=== PATIENT | male | born 1940 | race Caucasian/White ===

== ENCOUNTER → 2022-03-22 10:32 | Outpatient (BNVA) | payer MEDICARE, BC, SELFPAY | PROVIDERS: Visit Provider Family Medicine | DX: I48.91 Unspecified atrial fibrillation (principal); R35.1 Nocturia; R35.0 Frequency of micturition; I10 Essential (primary) hypertension; R31.9 Hematuria, unspecified | CPT/HCPCS: 80053; 80061; 81000; 84153; 84443; 85025; 87086 ==

== ENCOUNTER → 2022-05-26 09:33 | Outpatient (BNVA) | payer MEDICARE, BC, SELFPAY | PROVIDERS: PCP Family Medicine; Visit Provider Urology | DX: N20.1 Calculus of ureter (principal); N40.1 Benign prostatic hyperplasia with lower urinary tract symptoms; R31.21 Asymptomatic microscopic hematuria; R39.9 Unspecified symptoms and signs involving the genitourinary system; R35.0 Frequency of micturition; R31.9 Hematuria, unspecified; R35.1 Nocturia | CPT/HCPCS: 51741; 51798; 52000; 81003; 87086; 88112; 99203 ==

== ENCOUNTER 2022-06-28 12:35 | Outpatient (CLI) | payer MEDICARE, BC, SELFPAY ==
--- NOTE | 2022-06-28 12:30 | CT_ITS ---
WS: [id number] CT ABDOMEN AND PELVIS WITH AND WITHOUT CONTRAST HISTORY: Hematuria TECHNIQUE: Unenhanced 5 mm axial imaging first performed through the abdomen. Post contrast imaging t hrough the abdomen and pelvis. Oral contrast has been provided. Sagittal and coronal reformats are s ubmitted. All CT scans at [facility] use at least one of these dose optimization techniques: automated exposure control; mA and/or kV adjustment per patient size (includes targeted exams where d ose is matched to clinical indication); or iterative reconstruction. CONTRAST: Omnipaque 300; 95 mL IV. DLP: 2402.81 mGy.cm COMPARISON: None available. Benign granuloma RIGHT lung base. No pneumonia. Mild enlargement the heart. Small hiatal hernia. RIGHT kidney: 9.9 cm in length. Nonobstructing 6.4 mm calcification lower pole. No solid mass or vijaya l obstruction. Only partial opacification of the RIGHT ureter. No filling defect. LEFT kidney: 10.1 cm in length. Nonobstructing calcification lower pole measures 6.6 mm. No renal obs truction. There are several cortical cysts with no solid mass. The largest cyst measures 1.5 cm in th e lower pole. Only partial opacification of the LEFT ureter. No filling defect or obstruction. Normal liver and spleen. Normal gallbladder with mild contraction. Normal pancreas and adrenal glands . Mild atherosclerosis aorta. Tortuosity with no aneurysm. Small umbilical hernia contains fat only. No GI tract obstruction. Distal colon diverticulosis withou t acute diverticulitis. Prostate gland is markedly enlarged and lobulated encroaching into the urinary bladder. Central prost ate calcifications. Gland measures 6.2 x 5.7 cm and extends over a length of 6.7 cm encroaching into the bladder. The ureters are not obstructed at this time. No osteoblastic or osteolytic bone disease. CT/CT abdomen pelvis wo/w [id number] IMPRESSION: 1. No solid renal mass or obstruction. 2. Bilateral nonobstructing calcifications in each kidney. 3. LEFT renal cysts. 4. Markedly enlarged lobulated prostate gland measures 6.2 x 5.7 x 6.7 cm encr oaching into the urinary bladder. 5. Tortuous colon with diverticulosis. No evidence for acute diverticulitis.
[2022-06-28 13:03] LABS: Blood Urea Nitrogen 13 mg/dL (8-23)
[2022-06-28] MEDS: iohexol 350 mg/mL 500 mL Btl (per mL) IV (13:15)
== END 2022-06-28 12:36 | disposition home or self-care (01) ==
LOC: RAD 12:36
PROVIDERS: PCP Family Medicine; Visit Provider Urology
DX: N40.1 Benign prostatic hyperplasia with lower urinary tract symptoms (principal); R31.9 Hematuria, unspecified; R35.1 Nocturia; R39.9 Unspecified symptoms and signs involving the genitourinary system; R35.0 Frequency of micturition
CPT/HCPCS: 51741; 51798; 74178; 81003; 82565; 84520; 99213; Q9967

== ENCOUNTER → 2022-11-22 13:27 | Outpatient (BNVA) | payer MEDICARE, BC, SELFPAY | PROVIDERS: PCP Family Medicine; Visit Provider Dermatology | DX: L82.1 Other seborrheic keratosis (principal); L57.8 Other skin changes due to chronic exposure to nonionizing radiation; L85.3 Xerosis cutis; L57.0 Actinic keratosis; L81.4 Other melanin hyperpigmentation; Z85.828 Personal history of other malignant neoplasm of skin | CPT/HCPCS: 17000; 17003; 99214 ==

== ENCOUNTER 2023-02-15 14:56 | Inpatient (IN) | payer MEDICARE, BC, SELFPAY ==
[2023-02-15 15:02] VITALS: BP 180/95; PULSE 119; RESP 16; TEMP 36.5; O2SAT 97; BMI 28.1
[2023-02-15 16:10] LABS: Hematocrit 47.9 % (37-53); Mean Corpuscular HGB Conc 33.2 g/dL (30-55); Mean Corpuscular Hemoglobin 31.2 pg (27-33); Mean Corpuscular Volume 93.9 fl (82-101); Mean Platelet Volume 10.7 fL (7.4-10.4); Platelet Count 231 10^3/cmm (157-399); White Blood Count 15.07 10^3/uL (3.29-11.43)
[2023-02-15 16:13] LABS: Slide Review Slide Review Perform
[2023-02-15 16:25] LABS: Absolute Segmented Neutrophil 14.6 10/cmm (1.6-7.1); Alanine Aminotransferase 23 U/L (0-41); Albumin Level 4.7 g/dL (3.5-5.2); Alkaline Phosphatase 95 U/L (40-130); Anion Gap 16.9 (5-19); Aspartate Amino Transferase 18 U/L (0-40); Band Neutrophils Absolute 0.2 10^3/cmm (0.0-1.2); Blood Urea Nitrogen 12 mg/dL (8-23); Calcium 9.8 mg/dL (8.5-10.5); Carbon Dioxide 27 mmol/L (22-29); Chloride 99 mmol/L (98-107); Eosinophils 0 %; Globulin 3.2 g/dL (1.3-4.6); Glucose 159 mg/dL (65-115); Lipase 25 U/L (13-60); Lymphocytes 1 %; Lymphocytes Absolute 0.2 10^3/cmm (1.2-3.4); Osmolality Calculated 289 mOsm/kg (285-295); Potassium 4.9 mmol/L (3.5-5.1); Segmented Neutrophils 97 %; Sodium 138 mmol/L (136-145); Total Bilirubin 0.8 mg/dL (0.15-1.2); Total Cells Counted 100 (0-100); Total Protein 7.9 g/dL (6.6-8.7)
[2023-02-15 16:26] LABS: Absolute Neutrophil 14.8 10^3/cmm (1.4-6.5); Platelet Estimate Normal (Normal)
[2023-02-15 16:30] LABS: Add Urine Microscopic? YES; Bilirubin Urine Neg (Negative); Blood Urine Neg (Negative); Glucose Urine UA Norm (Normal); Ketones Urine 2+ (Negative); Leukocyte Esterase Urine Negative (Negative); Nitrate Urine Negative (Negative); Protein Urine Trace (Negative); Specific Gravity, Urine 1.015 (1.005-1.030); Urine Appearance Clear (CLEAR); Urine Color Yellow (Yellow); Urobilinogen Urine Norm (Negative); pH Urine 7 (5-7)
[2023-02-15 16:31] LABS: Add Urine Culture? No; Amorphous Sediment Urine 3+ /hpf; RBC Urine 0-4 /hpf (0-2); Squamous Epithelial Cell Urine 0-4 /hpf (0-5); WBC Urine 0-4 /hpf (0-5)
--- NOTE | 2023-02-15 16:41 | ED_ITS ---
HPI - Abdominal Pain General: Chief Complaint: Abdominal Pain Stated Complaint: lower abd pain, the walk in [facility] sent him Time Seen by Provider: 02/15/23 16:36 History of Present Illness: Patient presents to the ER with complaints of intermittent wavelike lower abdominal pain. This started this morning. Patient does have mild nausea with this. Patient is never had this pain before. The pain does not radiate. The pain is more of an ache and not sharp and stabbing in nature. 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 Surgical History History of facial surgery Social History Smoking and tobacco status: never smoked Alcohol intake: current Alcohol intake frequency: holidays/special occasions only Substance/Drug Use: never Adopted: Yes Caregiver/support person: No Lives independently: No Household members: spouse Housing: House Marital status: Current occupational status: retired Physical Exam Const: COMMON NORMALS: no acute distress, average body habitus, patient oriented x3, no limitations, healthy appearing, alert and well nourished HENMT: COMMON NORMALS: normocephalic, atraumatic, hearing grossly normal bilaterally, external ears normal, Normal external nose present and moist oral mucous membranes HEAD & SCALP: normocephalic and atraumatic NOSE: Normal external nose present EXTERNAL EAR: Yes external ears normal Neck/C-Spine: COMMON NORMALS: full ROM, no lymphadenopathy, supple, no meningeal signs, no JVD and Thyroid normal THYROID: Thyroid normal Chest: COMMONS NORMALS: normal inspection of the chest and normal palpation of entire chest wall Resp: COMMON NORMALS: normal respiratory effort, No retractions, No use of accessory muscles and clear to auscultation bilaterally AUSCULTATION: clear to auscultation bilaterally Cardio: COMMON NORMALS: no JVD, regular rate, regular rhythm, S1 normal heart sound present, S2 normal heart sound present, No gallops present (Cardio), No clicks present (Cardio), No murmurs present (Cardio) and No rub (Cardio) RATE: regular rate RHYTHM: regular rhythm HEART SOUNDS: S1 normal heart sound present and S2 normal heart sound present GI: COMMON NORMALS: Soft to palpation and No hepatosplenomegaly present PALPATION: Yes Soft to palpation and Yes No hepatosplenomegaly present OTHER: Prominent umbilical hernia noted very tender to palpate. : COMMON NORMALS: Yes no CVA tenderness BLADDER/KIDNEY EXAM: Yes no CVA tenderness Back/Pelvis: COMMON NORMALS: no CVA tenderness Neuro: COMMON NORMALS: patient oriented x3 SENSORIUM/ORIENTATION: Yes alert MENINGEAL SIGNS: Yes no meningeal signs Course Vital Signs: Vital signs: Vital Signs Temperature 97.7 F 02/15/23 15:02 Pulse Rate 100 02/15/23 19:33 Respiratory Rate 16 02/15/23 19:33 Blood Pressure 176/123 02/15/23 19:33 Pulse Oximetry 95 02/15/23 19:33 Oxygen Delivery Me thod Room Air 02/15/23 15:02 MDM - Abdominal Pain Medical Decision Making Patient presents to the ER with complaints of lower abdominal pain that comes in waves that started this morning. Lab work was obtained which showed a white count of 15,000 CT scan was obtained which showed suspicious for strangulation of an umbilical hernia and a mechanical secondary small bowel obstruction. Dr. Mcfarland was consulted who came to the ER and reduced the hernia and said admit to the hospitalist and he will repair the hernia probably Sunday since patient is on Xarelto and his last dose of was either yesterday or today. Dr. Marshall was consulted who agreed to admit the patient to [facility] [place] for further evaluation and treatment. Differential Diagnosis Likely abdominal pain; Unlikely acute appendicitis, calculus of kidney, constipation, diverticulitis, endometriosis, gastroenteritis, pancreatitis or small bowel obstruction Medical Records I reviewed the patient's medical records. Lab Data I reviewed the patient's lab results. 02/15/23 16:02 02/15/23 16:02 Labs/Radiology: Radiology Impressions Abdomen/Pelvis CT 02/15/23 16:45 IMPRESSION: 1. There is a large umbilical hernia containing omental fat and a loop of small bowel. Findings suspicious for strangulation of the hernia and findings suspicious for a mechanical small bowel obstruction secondary to compression of the herniated small bowel loop as it enters and exits the hernia sac. No pneumatosis. 2. Mild gastric distention with a large air-fluid level in the stomach. 3. Stable nonobstructing right renal stone. 4. Stable diffuse, mild wall thickening of the bladder. In the correct clinical setting, this may suggest cystitis. Recommend correlation with laboratory findings. Alternatively, this may be secondary to chronic outlet obstruction. 5. Stable marked enlargement of the prostate gland. Stable nonspecific parenchymal calcifications in the prostate gland. 6. Colonic diverticulosis. No evidence for diverticulitis. 7. Incidental/nonacute findings are listed in the report. ADDENDUM: 02/15/23 1758 THIS REPORT CONTAINS FINDINGS THAT MAY BE CRITICAL TO PATIENT CARE. The findings were verbally communicated via telephone conference with Man Leger at 5:52 PM T on 02/15/2023. The findings were acknowledged and understood. Laboratory Results WBC 15.07 10^3/uL (3.29-11.43) H 02/15/23 16:02 RBC 5.10 10^6/uL (3.85-5.65) 02/15/23 16:02 Hgb 15.90 g/dL (11.27-16.99) 02/15/23 16:02 Hct 47.9 % (37-53) 02/15/23 16:02 MCV 93.9 fl (82-101) 02/15/23 16:02 MCH 31.2 pg (27-33) 02/15/23 16:02 MCHC 33.2 g/dL (30-55) 02/15/23 16:02 RDW 15.0 % (12.1-15.1) 02/15/23 16:02 Plt Count 231 10^3/cmm (157-399) 02/15/23 16:02 MPV 10.7 fL (7.4-10.4) H 02/15/23 16:02 Lymph % (Auto) Not Reportable 02/15/23 16:02 Whitman % (Auto) Not Reportable 02/15/23 16:02 Lymph # (Auto) Not Reportable 02/15/23 16:02 Whitman # (Auto) Not Reportable 02/15/23 16:02 Total Counted 100 (0-100) 02/15/23 16:02 Atypical Lymphs % 0.0 % (0-5) 02/15/23 16:02 Absolute Neutrophils 14.8 10^3/cmm (1.4-6.5) H 02/15/23 16:02 Segmented Neutrophils 97 % 02/15/23 16:02 Abs Segm Neuts (Man) 14.6 10/cmm (1.6-7.1) H 02/15/23 16:02 Band Neutrophils 1.0 % 02/15/23 16:02 Abs Band Neuts (Man) 0.2 10^3/cmm (0.0-1.2) 02/15/23 16:02 Absolute Lymphocytes 0.2 10^3/cmm (1.2-3.4) L 02/15/23 16:02 Lymphocytes (Manual) 1 % 02/15/23 16:02 Monocytes (Manual) 0.0 % 02/15/23 16:02 Absolute Monocytes 0.0 10^3/cmm (0.1-0.6) L 02/15/23 16:02 Eosinophils (Manual) 0 % 02/15/23 16:02 Absolute Eosinophils 0.0 10^3/cmm (0.0-0.7) 02/15/23 16:02 Basophils (Manual) 0.0 % 02/15/23 16:02 Absolute Basophils 0.0 10^3/cmm (0.0-0.2) 02/15/23 16:02 Metamyelocytes 1.0 % 02/15/23 16:02 Myelocytes 0.0 % 02/15/23 16:02 Promyelocytes 0.0 % 02/15/23 16:02 Nucleated RBCs 0.0 /100WBC (0-1) 02/15/23 16:02 Platelet Estimate Normal (Normal) 02/15/23 16:02 Sodium 138 mmol/L (136-145) 02/15/23 16:02 Potassium 4.9 mmol/L (3.5-5.1) 02/15/23 16:02 Chloride 99 mmol/L (98-107) 02/15/23 16:02 Carbon Dioxide 27 mmol/L (22-29) 02/15/23 16:02 Anion Gap 16.9 (5-19) 02/15/23 16:02 BUN 12 mg/dL (8-23) 02/15/23 16:02 Creatinine 0.9 mg/dL (0.7-1.2) 02/15/23 16:02 GFR Calculation Not Reportable 02/15/23 16:02 Glucose 159 mg/dL (65-115) H 02/15/23 16:02 Calculated Osmolality 289 mOsm/kg (285-295) 02/15/23 16:02 Lactic Acid 2.8 mmol/L (0.5-2.2) H 02/15/23 16:02 Calcium 9.8 mg/dL (8.5-10.5) 02/15/23 16:02 Total Bilirubin 0.8 mg/dL (0.15-1.2) 02/15/23 16:02 AST 18 U/L (0-40) 02/15/23 16:02 ALT 23 U/L (0-41) 02/15/23 16:02 Alkaline Phosphatase 95 U/L (40-130) 02/15/23 16:02 Total Protein 7.9 g/dL (6.6-8.7) 02/15/23 16:02 Albumin 4.7 g/dL (3.5-5.2) 02/15/23 16:02 Globulin 3.2 g/dL (1.3-4.6) 02/15/23 16:02 Lipase 25 U/L (13-60) 02/15/23 16:02 Urine Color Yellow (Yellow) 02/15/23 16:13 Urine Appearance Clear (CLEAR) 02/15/23 16:13 Urine pH 7 (5-7) 02/15/23 16:13 Ur Specific [place] 1.015 (1.005-1.030) 02/15/23 16:13 Urine Protein Trace (Negative) 02/15/23 16:13 Urine Glucose (UA) Norm (Normal) 02/15/23 16:13 Urine Ketones 2+ (Negative) H 02/15/23 16:13 Urine Blood Neg (Negative) 02/15/23 16:13 Urine Nitrate Negative (Negative) 02/15/23 16:13 Urine Bilirubin Neg (Negative) 02/15/23 16:13 Urine Urobilinogen Norm mg/dL (Negative) 02/15/23 16:13 Ur Leukocyte Esterase Negative (Negative) 02/15/23 16:13 Urine RBC 0-4 /hpf (0-2) H 02/15/23 16:13 Urine WBC 0-4 /hpf (0-5) H 02/15/23 16:13 Ur Squamous Epith Cells 0-4 /hpf (0-5) H 02/15/23 16:13 Amorphous Sediment 3+ /hpf 02/15/23 16:13 Urine Bacteria None /hpf (NONE) 02/15/23 16:13 Discharge Plan Discharge Patient Disposition: Admitted As Inpatient Clinical Impression: Incarcerated umbilical hernia, SBO (small bowel obstruction) Condition: Stable Coding Level of Care Code ED Tablet Machine Operator for Charly Rao
[2023-02-15 16:43] VITALS: BP 212/127; PULSE 83; RESP 16; O2SAT 95
--- NOTE | 2023-02-15 16:45 | CTR_ITS ---
PROCEDURE INFORMATION: Exam: CT Abdomen And Pelvis With Contrast Exam date and time: 02/15/2023 5:14 PM Age: 82 years old Clinical indication: Abdominal pain; Periumbilical; Additional info: Lower abd pain, umbilical hernia, elevated wbc, R/O incarcer TECHNIQUE: Imaging protocol: Computed tomography of the abdomen and pelvis with contrast. Sagittal and coronal reformatted images were created and reviewed. Radiation optimization: All CT scans at this facility use at least one of these dose optimization techniques: automated exposure control; mA and/or kV adjustment per patient size (includes targeted exams where dose is matched to clinical indication); or iterative reconstruction. Contrast material: OMNI 350; Contrast volume: 100 ml; Contrast route: INTRAVENOUS (IV); REPORTING DATA: Count of CT and Cardiac NM exams in prior 12 months: This patient has received [address] and 0 known cardiac nuclear medicine studies in the 12 months prior to the current study. COMPARISON: CT abdomen pelvis wo/w [id number] 06/28/2022 1:07 PM RADIATION DOSE METRICS: Total DLP (mGy-cm): 815 FINDINGS: Lungs: Visualized lungs are clear. Pleural spaces: No pleural effusion. Heart: Stable moderate enlargement of the visualized portions of the heart. Liver: The liver is unremarkable. Gallbladder and bile ducts: The gallbladder is unremarkable. No biliary ductal dilatation. Pancreas: The pancreas is unremarkable. No pancreatic ductal dilatation. Spleen: The spleen is unremarkable. Adrenal glands: The right and left adrenal glands are unremarkable. Kidneys and ureters: Stable subcentimeter hypodense foci in both right and left kidneys that are too small to characterize, however likely represent small cysts. Stable non-obstructing stone in the right kidney measuring 6.4 mm (series 3, image 32). 2 left kidney cysts are stable, the larger measures 1.8 cm. The right and left ureters are unremarkable. Stomach and bowel: Numerous diverticula throughout the colon. No evidence for diverticulitis. Mild gastric distention with a large air-fluid level in the stomach. There is a large umbilical hernia containing omental fat and a loop of small bowel. There is a small amount of fluid and mild inflammation in the hernia sac. The small bowel loop is compressed as it enters and exits the hernia sac. The herniated small bowel loop and small bowel loops proximal to the hernia are dilated with air-fluid levels measuring up to 3.3 cm in diameter (series 3, image 34). No pneumatosis. Appendix: The appendix is visualized and is unremarkable. No findings to suggest acute appendicitis. Intraperitoneal space: No free intraperitoneal air. No ascites. No loculated fluid collections to suggest an abscess. Vasculature: Mild atherosclerotic changes in the visualized arteries. Lymph nodes: No lymphadenopathy. Urinary bladder: Stable diffuse, mild wall thickening of the bladder. Reproductive: Stable marked enlargement of the prostate gland. Stable nonspecific parenchymal calcifications in the prostate gland. Patient has multiple left scrotal calcifications. The right and left testes are unremarkable. Bones/joints: Degenerative changes in the spine, sacroiliac joints, and hips. Mild spinal canal stenosis at L1-L2 through L4-L5. Multilevel foraminal stenosis of varying severity in the visualized spine. Straightening of the lumbar spine. This may be due to positioning versus muscle spasm. Soft tissues: See under stomach and bowel . CT/CT abdomen pelvis w con* [id number] IMPRESSION: 1. There is a large umbilical hernia containing omental fat and a loop of small bowel. Findings suspicious for strangulation of the hernia and findings suspicious for a mechanical small bowel obstruction secondary to compression of the herniated small bowel loop as it enters and exits the hernia sac. No pneumatosis. 2. Mild gastric distention with a large air-fluid level in the stomach. 3. Stable nonobstructing right renal stone. 4. Stable diffuse, mild wall thickening of the bladder. In the correct clinical setting, this may suggest cystitis. Recommend correlation with laboratory findings. Alternatively, this may be secondary to chronic outlet obstruction. 5. Stable marked enlargement of the prostate gland. Stable nonspecific parenchymal calcifications in the prostate gland. 6. Colonic diverticulosis. No evidence for diverticulitis. 7. Incidental/nonacute findings are listed in the report.
[2023-02-15] MEDS: iohexol 350 mg/mL 500 mL Btl (per mL) IV (17:22)
--- NOTE | 2023-02-15 18:41 | P.CONIM_ITS ---
Providers/Reason For Consult Consulting Physician/Specialty*: Dr. Lambert Mcfarland DO/General surgery Reason for Consult*: Incarcerated umbilical hernia Primary Care Provider: Tim Nguyễn DO History of Present Illness History of Present Illness Diallo Knox is a 82 year old male who presents to the emergency room with an incarcerated umbilical hernia and abdominal pain for the last 24 hours. The pain is sharp and constant, located over the umbilicus. The pain does not radiate. Palpation makes pain worse. Nothing makes pain better. He does report nausea but denies any emesis. Denies any diarrhea or constipation. Denies any fever or chills. CT the abdomen pelvis shows an umbilical hernia containing small bowel with possible strangulation Review of Systems General: Reports: 10 or more systems reviewed and unremarkable except in HPI and below Medications/Allergies Home Medications Medication Instructions Recorded Confirmed Last Taken Type mupirocin 2 % topical ointment 1 applic topical BID #22 grams 05/03/22 11/24/22 Unknown Rx tamsulosin 0.4 mg capsule 0.4 mg PO QDAY #30 caps 05/26/22 11/24/22 Unknown Rx ketoconazole 2 % shampoo 1 applic topical .2x weekly #120 mL 06/29/22 11/24/22 Unknown Rx finasteride 5 mg tablet See Rx Instructions .Route 07/19/22 11/24/22 Unknown Rx .COMPLEX #90 tabs fluorouracil 5 % topical cream 1 applic topical BID 2 weeks #40 08/23/22 11/24/22 Unknown Rx (Efudex) grams furosemide 20 mg tablet (Lasix) 20 mg PO DAILY 5 days #5 tabs 09/18/22 11/24/22 Unknown Rx metoprolol succinate 50 mg See Rx Instructions .Route 10/23/22 11/24/22 Unknown Rx tablet,extended release 24 hr .COMPLEX #90 tabs omeprazole 20 mg capsule,delayed 20 mg PO DAILY #90 caps 11/24/22 11/24/22 Unknown Rx release rivaroxaban 20 mg tablet (Xarelto) See Rx Instructions .Route 01/15/23 Unknown Rx .COMPLEX #30 tabs lisinopril 40 mg tablet See Rx Instructions .Route 01/19/23 Unknown Rx .COMPLEX #90 tabs Allergies Allergy/AdvReac Type Severity Reaction Status Date / Time No Known Allergies Allergy Verified 11/24/22 10:45 PFSH Acute PFSH: Medical History (Updated 02/15/23 @ 18:43 by Lambert Mcfarland DO) 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 Surgical History (Updated 02/15/23 @ 18:43 by Lambert Mcfarland DO) History of facial surgery Social History Smoking and tobacco status: never smoked Alcohol intake: current Alcohol intake frequency: holidays/special occasions only Substance/Drug Use: never Adopted: Yes Caregiver/support person: No Lives independently: No Household members: spouse Housing: House Marital status: Current occupational status: retired Vitals/I&O/Wt Last Vital Signs Temp 97.7 F 02/15/23 15:02 Pulse 83 02/15/23 16:43 Resp 16 02/15/23 16:43 BP 212/127 02/15/23 16:43 Pulse Ox 95 02/15/23 16:43 O2 Del Method Room Air 02/15/23 15:02 Weight last 48 hrs Weight 202 lb Physical Exam Narrative: General : Patient is well developed , no acute distress, oriented x3 Head : Normal cephalic, a-traumatic. Ears : Pinnae and external canal are normal. Hearing is normal. Eyes : PERRLA, Sclera and injection are normal. No conjunctival discharge. Nose : Mucous membranes are without erythema. Throat : buccal mucosa is normal, gums are without significant recession or hypertrophy. Lungs : Equal chest rise bilaterally, no use of accessory muscles, trachea is midline. Cor : Rate and rhythm are normal. Abdomen : Soft, mild distention, tender to palpation over and incarcerated umbilical hernia, no overlying skin color changes, hernia was manually reduced with ease. No guarding or rebound Extremities : No edema, no cyanosis or clubbing, dorsalis pedis pulses are present bilaterally, non-tender to palpation of calves. Upper extremities are normal bilaterally. Back : non-tender to palpation, no CVA tenderness. Neuro : CN II - XII intact, Upper and lower extremities have equal and full strength Data 02/15/23 16:02 02/15/23 16:02 A&P Assessment and plan (1) Incarcerated umbilical hernia: Plan N.p.o. after midnight Tomorrow for laparoscopic repair of hernia with mesh The risks and benefits of procedure, including but not limited to, scar, numbne ss, pain infection, bleeding, possible bowel resection, possible conversion to an open procedure, possibility of not being able to use mesh, damage to surrounding structures, were explained to the patient. He is understanding the risks and wishes to proceed. Coding Level of Care Code 21563 Diagnoses Incarcerated umbilical hernia K42.0
[2023-02-15 18:56] LABS: Lactic Sepsis W/Reflex 2.8 mmol/L (0.5-2.2)
[2023-02-15 19:33] VITALS: BP 176/123; PULSE 100; RESP 16; O2SAT 95
[2023-02-15 20:17] LABS: Reflex Lactate Order REFLEX LACTIC ORDERD
[2023-02-15] MEDS: metoprolol tartrate 1 mg/1 mL SDV 5 mL 5 MG IVP (20:43)
[2023-02-15 20:46] VITALS: BP 170/120
[2023-02-15 21:16] LABS: Lactic Acid level (Lactate) 2.1 mmol/L (0.5-2.2)
[2023-02-15] MEDS: sodium chloride 0.9% 1,000 ML 100 ML IV (21:57)
--- NOTE | 2023-02-15 22:16 | P.HP_ITS ---
Providers/Chief Complaint Admitting Physician: Charli Marshall DO Primary Care Provider: Tim Nguyễn DO Chief Complaint: lower abd pain, the walk in [facility] sent him History of Present Illness Diallo Knox is a 82 year old male with past medical history of hypertension, GERD, BPH presents with incarcerated hernia. Patient had abdominal pain for couple of days. It got severe today. He saw his PCP today and was sent into the emergency room. In the emergency room he was found to have a incarcerated umbilical hernia. Dr. Mcfarland reduced it in the ED. Plans for vertical intervention scheduled for Sunday due to patient taking Xarelto. Currently, patient denies pain no nausea vomiting patient denies any constipation or diarrhea recently. His only concerns today are his skin lesions that are protuberant asking if they could be removed. Review of Systems Const: Denies: fever(s) or chills Eyes: Denies: change in vision ENMT: Denies: throat pain or nasal congestion Card: Denies: chest pain or palpitations Resp: Denies: dyspnea or productive cough GI: Reports: abdominal pain; Denies: nausea, vomiting or change in stool character : Denies: difficulty urinating or dysuria Musc: Denies: back pain or extremity pain Skin/Breast: Reports: other (excessive growth of seborrheic keratosis on back and right breast); Denies: rash Neuro: Denies: headache(s) or dizziness Psych: Denies: anxiety or depression Saji/Lymph: Denies: easy bruising or easy bleeding Medications/Allergies Home Medications Medication Instructions Recorded Confirmed Last Taken Type mupirocin 2 % topical ointment 1 applic topical BID #22 grams 05/03/22 11/24/22 Unknown Rx tamsulosin 0.4 mg capsule 0.4 mg PO QDAY #30 caps 05/26/22 11/24/22 Unknown Rx ketoconazole 2 % shampoo 1 applic topical .2x weekly #120 mL 06/29/22 11/24/22 Unknown Rx finasteride 5 mg tablet See Rx Instructions .Route 07/19/22 11/24/22 Unknown Rx .COMPLEX #90 tabs fluorouracil 5 % topical cream 1 applic topical BID 2 weeks #40 08/23/22 11/24/22 Unknown Rx (Efudex) grams furosemide 20 mg tablet (Lasix) 20 mg PO DAILY 5 days #5 tabs 09/18/22 11/24/22 Unknown Rx metoprolol succinate 50 mg See Rx Instructions .Route 10/23/22 11/24/22 Unknown Rx tablet,extended release 24 hr .COMPLEX #90 tabs omeprazole 20 mg capsule,delayed 20 mg PO DAILY #90 caps 11/24/22 11/24/22 Unknown Rx release rivaroxaban 20 mg tablet (Xarelto) See Rx Instructions .Route 01/15/23 Unknown Rx .COMPLEX #30 tabs lisinopril 40 mg tablet See Rx Instructions .Route 01/19/23 Unknown Rx .COMPLEX #90 tabs Allergies Allergy/AdvReac Type Severity Reaction Status Date / Time No Known Allergies Allergy Verified 11/24/22 10:45 PFSH Acute PFSH: Medical History (Updated 02/15/23 @ 22:31 by Charli Marshall DO) Atrial fibrillation BPH loc w urin obs/LUTS Essential hypertension History of nonmelanoma skin cancer Surgical History History of facial surgery Social History Smoking and tobacco status: never smoked Alcohol intake: current Alcohol intake frequency: holidays/special occasions only Substance/Drug Use: never Adopted: Yes Caregiver/support person: No Lives independently: No Household members: spouse Housing: House Marital status: Current occupational status: retired Vitals/I&O/Wt Last Vital Signs Temp 97.7 F 02/15/23 15:02 Pulse 100 02/15/23 19:33 Resp 16 02/15/23 19:33 BP 170/120 02/15/23 20:46 Pulse Ox 95 02/15/23 19:33 O2 Del Method Room Air 02/15/23 21:46 Weight last 48 hrs Weight 91.626 kg Physical Exam Narrative: 82-year-old white male who appears his stated age. In no acute distress at time of examination. Daughter is present at bedside for exam. Neurologic: Patient is alert and oriented to person place time and situation he is mildly slow to respond nonfocal to exam HEENT: Patient has a lesion above the forehead that is ecchymosis as well as ecchymosis noted below the left eye. Patient has multiple sebborheic keratosis on his head. Pupils: Round reactive to light and accommodation extraocular muscles are intact there is no scleral icterus mucous membranes are moist and pink without lesions or exudates. Neck is supple no JVD carotid bruits or lymphadenopathy Chest: Rises symmetrically with inspiration Cardio: Normal S1-S2 without murmurs clicks gallops or rubs Respiratory: Clear to auscultation without wheezes rales or rhonchi Abdomen: Soft nontender nondistended normal active bowel sounds. Umbilical her nola present. Extremities: Present no clubbing cyanosis or edema. Lymph: No lymphadenopathy palpable in supraclavicular axillary or inguinal areas Skin. Multiple seborrheic keratoses noted over the head back chest and arms. 2 protuberant areas were on the left upper back and right breast. Back: No scoliosis or kyphosis. No CVA tenderness Data 02/15/23 16:02 02/15/23 16:02 CT Abd/Pel: Radiologist's impression: IMPRESSION: 1. ? There is a large umbilical hernia containing omental fat and a loop of small bowel. Findings suspicious for strangulation of the hernia and findings suspicious for a mechanical small bowel obstruction secondary to compression of the herniated small bowel loop as it enters and exits the hernia sac. No pneumatosis. 2. ? Mild gastric distention with a large air-fluid level in the stomach. 3. ? Stable nonobstructing right renal stone. 4. ? Stable diffuse, mild wall thickening of the bladder. In the correct clinical setting, this may suggest cystitis. Recommend correlation with laboratory findings. Alternatively, this may be secondary to chronic outlet obstruction. 5. ? Stable marked enlargement of the prostate gland. Stable nonspecific parenchymal calcifications in the prostate gland. 6. ? Colonic diverticulosis. No evidence for diverticulitis. 7. ? Incidental/nonacute findings are listed in the report. A&P Assessment and plan (1) Incarcerated umbilical hernia: Surgery consulted in ED. Dr. Mcfarland reduced hernia in the emergency room. Plan for umbilical hernia repair in the OR on Sunday. Hold Xarelto. N.p.o. except for sips and chips. (2) SBO (small bowel obstruction): N.p.o. except for sips and chips. Bowel rest. (3) Essential hypertension: Patient takes metoprolol 50 mg daily, Lasix 20 mg daily, lisinopril 40 mg daily. We will convert to IV scheduled doses in preparation for the OR. (4) Atrial fibrillation: Stable rate controlled. Xarelto on hold. May resume after OR. Qualifiers: Atrial fibrillation type: longstanding persistent Qualified Code(s): I48.11 - Longstanding persistent atrial fibrillation (5) GERD without esophagitis: Patient takes PPI. Will give IV. (6) BPH loc w urin obs/LUTS: Patient takes finasteride. Will hold for now. (7) Seborrheic keratosis, inflamed: Removed the bulk of the left back lesion using scissors and tweezers. Band-Aid placed over this lesion. Was able to remove the bulk of the right breast lesion manually. Patient and daughter expressed appreciation. (8) Seborrheic keratoses: Recommend scrubbing back with washcloth firmly. Attestations Medical Necessity Statement*: Patient requires surgical intervention of a large umbilical hernia. His care will cross 2 midnights in order to undergo surgery and recuperation. Coding Level of Care Code Acute Code for [facility] Diagnoses Incarcerated umbilical hernia K42.0 SBO (small bowel obstruction) K56.609 Essential hypertension I10 Atrial fibrillation I48.11 Atrial fibrillation type: longstanding persistent GERD without esophagitis K21.9 BPH loc w urin obs/LUTS N40.1 Seborrheic keratosis, inflamed L82.0 Seborrheic keratoses L82.1
[2023-02-15 22:36] VITALS: BP 170/100; PULSE 68; RESP 18; TEMP 36.6; O2SAT 96
[2023-02-16] VITALS (8 sets, daily range): BP systolic 159–191; BP diastolic 80–118; PULSE 58–93; RESP 15–17; TEMP 36.3–36.9; O2SAT 93–97
[2023-02-16] MEDS: piperacillin-tazobactam 3.375 GM in sodium chloride 0.9% (plus) 50 ML IV ×3 (00:01→17:40)
[2023-02-16] MEDS: enalaprilat 1.25 mg/mL Inj IVP ×4 (00:01→22:53)
[2023-02-16] MEDS: metoprolol tartrate 1 mg/1 mL SDV 5 mL 5 MG IVP ×4 (00:01→17:39)
[2023-02-16 05:45] LABS: Basophils % 0.3 %; Eosinophils # 0.1 10^3/uL (0.0-0.8); Hematocrit 43.2 % (37-53); Lymphocytes # 2.1 10^3/uL (0.8-4.8); Lymphocytes % 22.6 %; Mean Corpuscular HGB Conc 33.6 g/dL (30-55); Mean Corpuscular Hemoglobin 31.3 pg (27-33); Mean Corpuscular Volume 93.3 fl (82-101); Mean Platelet Volume 10.4 fL (7.4-10.4); Monocytes # 1.1 10^3/uL (0.2-0.9); Monocytes % 11.8 %; Neutrophils # 5.83 10^3/uL (1.8-7.7); Neutrophils % 64.1 %; Nucleated Red Blood Cells % 0 %; Platelet Count 234 10^3/cmm (157-399); Red Blood Count 4.63 10^6/uL (3.85-5.65); Red Cell Distribution Width 15.2 % (12.1-15.1); White Blood Count 9.09 10^3/uL (3.29-11.43)
[2023-02-16 06:11] LABS: Blood Urea Nitrogen 11 mg/dL (8-23); Calcium 8.8 mg/dL (8.5-10.5); Carbon Dioxide 26 mmol/L (22-29); Chloride 104 mmol/L (98-107); Glucose 91 mg/dL (65-115); Osmolality Calculated 289 mOsm/kg (285-295); Sodium 140 mmol/L (136-145)
--- NOTE | 2023-02-16 08:03 | PM.PN ---
Subjective Subjective: Patient seen and examined. He is passing gas and has no abdominal pain. Vitals/I&O/Wt Last Vital Signs Temp 97.4 F L 02/17/23 03:40 Pulse 74 02/17/23 03:40 Resp 14 02/17/23 03:40 BP 136/96 02/17/23 03:40 Pulse Ox 98 02/17/23 03:40 O2 Del Method Room Air 02/17/23 03:40 02/16/23 02/17/23 02/17/23 22:59 06:59 14:59 Intake Total 1410 / 2460 0.5 / 2460.5 50 / 50 Balance 1410 / 2135 0.5 / 2135.5 50 / 50 Weight last 48 hrs Weight 202 lb Physical Exam Narrative: General: No acute distress, awake alert and oriented x3 Abdomen: Soft, nontender, nondistended, no guarding rebound or masses, there is a reducible umbilical hernia Data 02/17/23 05:42 02/17/23 05:42 A&P Assessment and plan (1) Incarcerated umbilical hernia: Plan N.p.o. after midnight Tomorrow for laparoscopic repair of hernia with mesh The risks and benefits of procedure, including but not limited to, scar, numbness, pain infection, bleeding, possible bowel resection, possible conversion to an open procedure, possibility of not being able to use mesh, damage to surrounding structures, were explained to the patient. He is understanding the risks and wishes to proceed. Attestations Medical Necessity Statement*: Patient requires at least 1 more night in the hospital for laparoscopic repair of his hernia tomorrow Coding Level of Care Code Acute Code for [facility] Diagnoses Incarcerated umbilical hernia K42.0
[2023-02-16] MEDS: pantoprazole 40 mg SDV IVP (08:44)
[2023-02-16] MEDS: sodium chloride 0.9% 1,000 ML 100 ML IV (08:45)
--- NOTE | 2023-02-16 18:56 | PM.PN ---
Subjective Subjective: States he is doing all right. Denies abdominal pain currently. Denies chest pain or pressure, no trouble breathing. Denies any limitation with exertion/walking on flat surface due to shortness of breath or chest pain or pressure. Vitals/I&O/Wt Last Vital Signs Temp 97.4 F L 02/16/23 16:00 Pulse 76 02/16/23 16:00 Resp 16 02/16/23 16:00 BP 191/118 02/16/23 16:00 Pulse Ox 96 02/16/23 16:00 O2 Del Method Room Air 02/16/23 03:54 02/16/23 02/16/23 02/16/23 06:59 14:59 22:59 Intake Total 50 / 50 1050 / 1050 Output Total 325 / 325 Balance 50 / 50 725 / 725 Weight last 48 hrs Weight 91.626 kg Physical Exam Narrative: Sitting up in chair Const: COMMON NORMALS: patient oriented x3 and alert GENERAL APPEARANCE: cooperative ORIENTATION/CONSCIOUSNESS: Yes awake HENMT: COMMON NORMALS: oropharynx normal Neck/C-Spine: COMMON NORMALS: no JVD Resp: COMMON NORMALS: normal respiratory effort and clear to auscultation bilaterally AUSCULTATION: clear to auscultation bilaterally Cardio: COMMON NORMALS: no JVD, regular rhythm, S1 normal heart sound present, S2 normal heart sound present and No murmurs present (Cardio) RHYTHM: regular rhythm HEART SOUNDS: S1 normal heart sound present and S2 normal heart sound present GI: COMMON NORMALS: Normal to inspection, nondistended, normoactive bowel sounds present, Soft to palpation and non-tender PALPATION: Yes Soft to palpation Extremity: COMMON NORMALS: no joint enlargement and no pedal edema Neuro: COMMON NORMALS: patient oriented x3 and moves all extremities SENSORIUM/ORIENTATION: Yes alert Skin: COMMON NORMALS: no rashes or lesions noted GENERAL SKIN EXAM: no rashes or lesions noted Data 02/16/23 05:13 02/16/23 05:13 A&P Assessment and plan (1) Incarcerated umbilical hernia: Plans for hernia repair tomorrow. Xarelto on hold. We will stop Vasotec before the morning dose before surgeryto avoid perioperative hypotension. Decrease IVF infusion. N.p.o. after midnight. Reviewed CBC, BMP, repeat studies. Reviewed CT abdomen pelvis. Surgery note reviewed. (2) SBO (small bowel obstruction): Hernia reduced. He after midnight for repair tomorrow. (3) Essential hypertension: Reduce IV fluids. Was started on IV metoprolol and Vasotec, continue for now, will stop Vasotec before tomorrow morning before surgery. Patient takes metoprolol 50 mg daily, Lasix 20 mg daily, lisinopril 40 mg daily. (4) Atrial fibrillation: Stable rate controlled. Xarelto on hold. May resume after OR. Qualifiers: Atrial fibrillation type: longstanding persistent Qualified Code(s): I48.11 - Longstanding persistent atrial fibrillation (5) GERD without esophagitis: Patient takes PPI. Continue IV. (6) BPH loc w urin obs/LUTS: Patient takes finasteride. Resume with oral intake. (7) Seborrheic keratosis, inflamed: Follow-up with PCP. (8) Seborrheic keratoses: Attestations Medical Necessity Statement*: Continue admission for hernia repair incarceration which resulted in bowel obstruction. Diagnoses Incarcerated umbilical hernia K42.0 SBO (small bowel obstruction) K56.609 Essential hypertension I10 Atrial fibrillation I48.11 Atrial fibrillation type: longstanding persistent GERD without esophagitis K21.9 BPH loc w urin obs/LUTS N40.1 Seborrheic keratosis, inflamed L82.0 Seborrheic keratoses L82.1
--- NOTE | 2023-02-16 19:06 | ECG_ITS ---
[facility] Test Date: 2023-02-16 Pat Name: Diallo Knox Department: Room: 263 Gender: Male Reliability Technician: : 1940 Requested By: Alberto Quezada Order Number: [id number] Rosa Cole MD: Kaitlin Gomez M.D. 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 [email or web address]
[2023-02-17] VITALS (10 sets, daily range): BP systolic 122–197; BP diastolic 85–122; PULSE 64–109; RESP 14–24; TEMP 36.1–36.4; O2SAT 94–99
[2023-02-17] MEDS: sodium chloride 0.9% 1,000 ML 30 ML IV (00:15)
[2023-02-17] MEDS: metoprolol tartrate 1 mg/1 mL SDV 5 mL 5 MG IVP ×2 (00:48→06:17)
[2023-02-17] MEDS: piperacillin-tazobactam 3.375 GM in sodium chloride 0.9% (plus) 50 ML IV (02:58)
[2023-02-17] MEDS: enalaprilat 1.25 mg/mL Inj IVP (03:55)
[2023-02-17 06:01] LABS: Basophils % 0.5 %; Eosinophils # 0.2 10^3/uL (0.0-0.8); Eosinophils % 1.7 %; Hematocrit 49.4 % (37-53); Lymphocytes # 1.9 10^3/uL (0.8-4.8); Lymphocytes % 20.9 %; Mean Corpuscular HGB Conc 33.2 g/dL (30-55); Mean Corpuscular Hemoglobin 30.8 pg (27-33); Mean Corpuscular Volume 92.9 fl (82-101); Mean Platelet Volume 10.6 fL (7.4-10.4); Monocytes # 0.7 10^3/uL (0.2-0.9); Monocytes % 7.8 %; Neutrophils % 68.9 %; Nucleated Red Blood Cells % 0 %; Platelet Count 281 10^3/cmm (157-399); Red Blood Count 5.32 10^6/uL (3.85-5.65); Red Cell Distribution Width 15.2 % (12.1-15.1); White Blood Count 8.85 10^3/uL (3.29-11.43)
[2023-02-17 06:21] LABS: Blood Urea Nitrogen 10 mg/dL (8-23); Calcium 9.3 mg/dL (8.5-10.5); Carbon Dioxide 28 mmol/L (22-29); Chloride 101 mmol/L (98-107); Glucose 115 mg/dL (65-115); Osmolality Calculated 288 mOsm/kg (285-295); Sodium 139 mmol/L (136-145)
[2023-02-17 06:26] LABS: Anion Gap 13.9 (5-19); Potassium 3.9 mmol/L (3.5-5.1)
--- NOTE | 2023-02-17 07:55 | PM.PN ---
Vitals/I&O/Wt Last Vital Signs Temp 97.4 F L 02/17/23 03:40 Pulse 74 02/17/23 03:40 Resp 14 02/17/23 03:40 BP 136/96 02/17/23 03:40 Pulse Ox 98 02/17/23 03:40 O2 Del Method Room Air 02/17/23 03:40 02/16/23 02/17/23 02/17/23 22:59 06:59 14:59 Intake Total 1410 / 2460 0.5 / 2460.5 50 / 50 Balance 1410 / 2135 0.5 / 2135.5 50 / 50 Weight last 48 hrs Weight 202 lb Data 02/17/23 05:42 02/17/23 05:42 A&P Assessment and plan (1) Incarcerated umbilical hernia: Plan Laparoscopic repair of hernia with mesh The risks and benefits of procedure, including but not limited to, scar, numbness, pain infection, bleeding, possible bowel resection, possible conversion to an open procedure, possibility of not being able to use mesh, damage to surrounding structures, were explained to the patient. He is understanding the risks and wishes to proceed. Attestations Medical Necessity Statement*: home Coding Level of Care Code Acute Code for Chg Fwd Diagnoses Incarcerated umbilical hernia K42.0
--- NOTE | 2023-02-17 07:58 | ANES.PREANE2 ---
Pre-Anesthetic Assessment Height/Weight: Height 1.8 m Weight 91.626 kg Temp Pulse Resp BP Pulse Ox O2 Del Method 97.4 F L 74 14 136/96 98 Room Air 02/17/23 03:40 02/17/23 03:40 02/17/23 03:40 02/17/23 03:40 02/17/23 03:40 02/17/23 03:40 Operation Date: 02/16/23 11:00 Proposed Procedures p Laparoscopic Umbilical Hernia Repair w/ Mesh(Not Applicable) - Lambert Mcfarland DO Operation Date: 02/17/23 08:00 Proposed Procedures p Laparoscopic Umbilical Hernia Repair w/ Mesh(Not Applicable) - Lambert Mcfarland DO Familial anesthetic complications: None Was Beta Vandana taken within 24 hours: Yes Was Clonidine taken within 24 hours: N/A Last intake: Intake Last Liquid Date 02/16/23 Last Liquid Time 22:30 Last Solid Date 02/15/23 Last Solid Time 08:30 Social No alcohol and No tobacco Exam alert, oriented x 3, clear to auscultation bilaterally and regular rate & rhythm Airway Mallampati: Class II Dentition: chipped CV/HEM Atrial Fibrillation and Hypertension GI Gastroesophageal Reflux Disease Anesthetic Plan ASA status: 3 Anesthesia: General Risk of > 500 ml blood loss (7ml/kg in children): No Medications/Allergies Home Medications Medication Instructions Recorded Confirmed Last Taken Type tamsulosin 0.4 mg capsule 0.4 mg PO QDAY #30 caps 05/26/22 02/16/23 02/15/23 Rx ketoconazole 2 % shampoo 1 applic topical .2x weekly #120 mL 06/29/22 02/16/23 Unknown Rx fluorouracil 5 % topical cream 1 applic topical BID 2 weeks #40 08/23/22 02/16/23 Unknown Rx (Efudex) grams omeprazole 20 mg capsule,delayed 20 mg PO DAILY #90 caps 11/24/22 02/16/23 Unknown Rx release lisinopril 40 mg tablet See Rx Instructions .Route 01/19/23 02/16/23 02/15/23 Rx .COMPLEX #90 tabs metoprolol succinate 50 mg 50 mg PO DAILY 02/16/23 02/16/23 02/15/23 History tablet,extended release 24 hr rivaroxaban 20 mg tablet (Xarelto) 20 mg PO QPM 02/16/23 02/16/2302/15/23 History Allergies Allergy/AdvReac Type Severity Reaction Status Date / Time No Known Allergies Allergy Verified 11/24/22 10:45 Current Medications Generic Name Dose Route Start Last Admin Trade Name Salma PRN Reason Stop Dose Admin Sodium Chloride 1,000 mls @ 30 mls/hr 02/15/23 19:15 02/17/23 00:16 Sodium Chloride 0.9% IV 30 mls/hr .Q24H WINSOME Infusion Piperacillin Sod/Tazobactam 50 mls @ 12.5 mls/hr 02/15/23 23:00 02/17/23 07:58 Sod 3.375 gm/ Sodium Chloride IV Infused Q8H WINSOME Infusion Metoprolol Tartrate 5 mg 02/16/23 00:00 02/17/23 06:17 Metoprolol Tartrate 1 Mg/1 Ml Sdv 5 Ml IVP 5 mg Q6H WINSOME Administration Pantoprazole Sodium 40 mg 02/16/23 09:00 02/16/23 08:44 Pantoprazole 40 Mg Sdv IVP 40 mg Q24H WINSOME Administration PFSH Anesthesia Medical History (Updated 02/15/23 @ 22:31 by Charli Marshall DO) Atrial fibrillation BPH loc w urin obs/LUTS Essential hypertension History of nonmelanoma skin cancer Surgical History History of facial surgery Social History Smoking and tobacco status: never smoked Alcohol intake: current Alcohol intake frequency: holidays/special occasions only Substance/Drug Use: never Adopted: Yes Caregiver/support person: No Lives independently: No Household members: spouse Housing: House Marital status: Current occupational status: retired Data Anesthesia 02/17/23 05:42 02/17/23 05:42 Short CBC 02/15/23 02/16/23 02/17/23 Range/Units 16:02 05:13 05:42 WBC 15.07 H 9.09 8.85 (3.29-11.43) 10^3/uL Hgb 15.90 14.50 16.40 (11.27-16.99) g/dL Hct 47.9 43.2 49.4 (37-53) % MCV 93.9 93.3 92.9 (82-101) fl Plt Count 231 234 281 (157-399) 10^3/cmm Neut % (Auto) 64.1 68.9 % Neut # (Auto) 5.83 6.10 (1.8-7.7) 10^3/uL BMP 02/15/23 02/16/23 02/17/23 16:02 05:13 05:42 Sodium 138 140 139 Potassium 4.9 4.0 3.9 Chloride 99 104 101 Carbon Dioxide 27 26 28 BUN 12 11 10 Creatinine 0.9 0.9 0.8 Glucose 159 H 91 115 Calcium 9.8 8.8 9.3 Liver Function 02/15/23 Range/Units 16:02 Total Bilirubin 0.8 (0.15-1.2) mg/dL AST 18 (0-40) U/L ALT 23 (0-41) U/L Alkaline Phosphatase 95 (40-130) U/L Albumin 4.7 (3.5-5.2) g/dL Urine 02/15/23 Range/Units 16:13 Urine Color Yellow (Yellow) Urine Appearance Clear (CLEAR) Urine pH 7 (5-7) Ur Specific [place] 1.015 (1.005-1.030) Urine Protein Trace (Negative) Urine Glucose (UA) Norm (Normal) Urine Ketones 2+ H (Negative) Urine Nitrate Negative (Negative) Urine Bilirubin Neg (Negative) Ur Leukocyte Esterase Negative (Negative) Urine RBC 0-4 H (0-2) /hpf Urine WBC 0-4 H (0-5) /hpf Cardiac Studies: No Data to Display
[2023-02-17] MEDS: lidocaine-epi 2% 20 mL INJ INJECTION (08:45)
--- NOTE | 2023-02-17 08:55 | PM.OP ---
Operative Report Date of procedure: February 17, 2023 Pre-op diagnosis: Umbilical hernia Post-op diagnosis: same Procedure done: Laparoscopic repair of umbilical hernia with mesh Implants: 11 cm round Ventralight mesh Specimens removed/disposition: Hernia sac Surgeon: Lambert Mcfarland DO Anesthesia: General Estimated blood loss (mL): 5 Complications: None apparent Brief History: Is a very pleasant 82-year-old gentleman who presents to the hospital with an umbilical hernia incarcerated with bowel. This was reduced in the emergency room. Laparoscopic repair of umbilical hernia with mesh was indicated. The risk and benefits were explained and documented Procedure: Patient was wheeled into the operative room and placed on the OR table in a supine position. Abdomen was inspected prepped and draped in usual sterile fashion. Time-out was performed and all present were in agreement. A 15 blade scalp was used to make a 5 millimeter incision left upper quadrant. A Veress needle was placed into the incision and intra-abdominal insufflation was brought to 15 millimeters of mercury. A 12 millimeter trocar was placed into the left lower quadrant. The energy but device was then used to cut out the hernia sac. An 11 cm ventralight mesh was placed into the abdomen and brought up through the umbilicus using an the Edinson-Jewel. The mesh was then tacked in place in a double crown fashion. The skeleton of the mesh was removed via the left lower quadrant. The hernia sac was then removed from the abdomen via the left lower quadrant. The left lower quadrant port site was closed with an 0 Vicryl suture in a Edinson-Jewel in a [id number] fashion. Incisions were closed with 4 O Vicryl in a subcuticular interrupted fashion. Skin glue was applied. A dressing that included cotton balls and a Tegaderm was placed over the umbilicus. Patient tolerated the procedure well.
--- NOTE | 2023-02-17 11:39 | PC.NURSE ---
Discharge awaiting transportation from patients daughter. Daughter is picking up medications from pharmacy and then she will be here to pick pt up.
[2023-02-17] MEDS: tamsulosin 0.4 mg Capsule PO (11:45)
--- NOTE | 2023-02-17 13:30 | PM.DCS ---
Discharge Providers Date of Admission: 02/15/23 20:08 Date of Discharge: February 17, 2023 Attending Provider at Admission: Charli Marshall DO Attending Provider at Discharge: Alberto Quezada Primary Care Provider: Tim Nguyễn DO Diagnoses at Discharge Discharge Diagnosis (1) Incarcerated umbilical hernia: Status: Acute Reason for Visit Reason for Visit: lower abd pain, the walk in [facility] sent him Brief History: Diallo Knox is a 82 year old male with past medical history of hypertension, GERD, BPH presents with incarcerated hernia.? Patient had abdominal pain for couple of days.? It got severe today.? He saw his PCP today and was sent into the emergency room.? In the emergency room he was found to have a incarcerated umbilical hernia.? Dr. Mcfarland reduced it in the ED.? Plans for vertical intervention scheduled for Sunday due to patient taking Xarelto. Currently, patient denies pain no nausea vomiting patient denies any constipation or diarrhea recently. His only concerns today are his skin lesions that are protuberant asking if they could be removed. Hospital Course Hospital Course Xarelto was held. He did well on 02/16 without further episodes of incarceration or obstruction, underwent hernia repair uneventfully on 02/17 and was discharged home afterwards as he was doing well. Please follow-up for continued recovery. Please follow-up seborrheic keratosis. Physical Exam Const: COMMON NORMALS: patient oriented x3 and alert GENERAL APPEARANCE: cooperative ORIENTATION/CONSCIOUSNESS: Yes awake HENMT: COMMON NORMALS: oropharynx normal Neck/C-Spine: COMMON NORMALS: no JVD Resp: COMMON NORMALS: normal respiratory effort and clear to auscultation bilaterally AUSCULTATION: clear to auscultation bilaterally Cardio: COMMON NORMALS: no JVD, regular rhythm, S1 normal heart sound present, S2 normal heart sound present and No murmurs present (Cardio) RHYTHM: regular rhythm HEART SOUNDS: S1 normal heart sound present and S2 normal heart sound present GI: COMMON NORMALS: Normal to inspection, nondistended, normoactive bowel sounds present, Soft to palpation and non-tender PALPATION: Yes Soft to palpation Extremity: COMMON NORMALS: no joint enlargement and no pedal edema Neuro: COMMON NORMALS: patient oriented x3 and moves all extremities SENSORIUM/ORIENTATION: Yes alert Skin: COMMON NORMALS: no rashes or lesions noted GENERAL SKIN EXAM: no rashes or lesions noted Discharge Data Studies Completed and Pending Completed Studies During Hospitalization Category Date Time Status CT abdomen pelvis w con* [id number] Stat Cat Scan 02/15/23 16:45 Completed Pending at discharge Category Date Time Status Pathology: Surgical [PTH] Routine Pth 02/17/23 09:09 Ordered Radiology Impressions Abdomen/Pelvis CT 02/15/23 16:45 IMPRESSION: 1. There is a large umbilical hernia containing omental fat and a loop of small bowel. Findings suspicious for strangulation of the hernia and findings suspicious for a mechanical small bowel obstruction secondary to compression of the herniated small bowel loop as it enters and exits the hernia sac. No pneumatosis. 2. Mild gastric distention with a large air-fluid level in the stomach. 3. Stable nonobstructing right renal stone. 4. Stable diffuse, mild wall thickening of the bladder. In the correct clinical setting, this may suggest cystitis. Recommend correlation with laboratory findings. Alternatively, this may be secondary to chronic outlet obstruction. 5. Stable marked enlargement of the prostate gland. Stable nonspecific parenchymal calcifications in the prostate gland. 6. Colonic diverticulosis. No evidence for diverticulitis. 7. Incidental/nonacute findings are listed in the report. ADDENDUM: 02/15/23 1754 THIS REPORT CONTAINS FINDINGS THAT MAY BE CRITICAL TO PATIENT CARE. The findings were verbally communicated via telephone conference with Man Leger at 5:52 PM CDT on 02/15/2023. The findings were acknowledged and understood. Laboratory Results WBC 8.85 10^3/uL (3.29-11.43) 02/17/23 05:42 RBC 5.32 10^6/uL (3.85-5.65) 02/17/23 05:42 Hgb 16.40 g/dL (11.27-16.99) 02/17/23 05:42 Hct 49.4 % (37-53) 02/17/23 05:42 MCV 92.9 fl (82-101) 02/17/23 05:42 MCH 30.8 pg (27-33) 02/17/23 05:42 MCHC 33.2 g/dL (30-55) 02/17/23 05:42 RDW 15.2 % (12.1-15.1) H 02/17/23 05:42 Plt Count 281 10^3/cmm (157-399) 02/17/23 05:42 MPV 10.6 fL (7.4-10.4) H 02/17/23 05:42 Neut % (Auto) 68.9 % 02/17/23 05:42 Lymph % (Auto) 20.9 % 02/17/23 05:42 [place] % (Auto) 7.8 % 02/17/23 05:42 Eos % (Auto) 1.7 % 02/17/23 05:42 Baso % (Auto) 0.5 % 02/17/23 05:42 Neut # (Auto) 6.10 10^3/uL (1.8-7.7) 02/17/23 05:42 Lymph # (Auto) 1.9 10^3/uL (0.8-4.8) 02/17/23 05:42 [place] # (Auto) 0.7 10^3/uL (0.2-0.9) 02/17/23 05:42 Eos # (Auto) 0.2 10^3/uL (0.0-0.8) 02/17/23 05:42 Baso # (Auto) 0.0 10^3/uL (0.0-0.1) 02/17/23 05:42 Nucleated RBC % (auto) 0 % 02/17/23 05:42 Total Counted 100 (0-100) 02/15/23 16:02 Atypical Lymphs % 0.0 % (0-5) 02/15/23 16:02 Absolute Neutrophils 14.8 10^3/cmm (1.4-6.5) H 02/15/23 16:02 Segmented Neutrophils 97 % 02/15/23 16:02 Abs Segm Neuts (Man) 14.6 10/cmm (1.6-7.1) H 02/15/23 16:02 Band Neutrophils 1.0 % 02/15/23 16:02 Abs Band Neuts (Man) 0.2 10^3/cmm (0.0-1.2) 02/15/23 16:02 Absolute Lymphocytes 0.2 10^3/cmm (1.2-3.4) L 02/15/23 16:02 Lymphocytes (Manual) 1 % 02/15/23 16:02 Monocytes (Manual) 0.0 % 02/15/23 16:02 Absolute Monocytes 0.0 10^3/cmm (0.1-0.6) L 02/15/23 16:02 Eosinophils (Manual) 0 % 02/15/23 16:02 Absolute Eosinophils 0.0 10^3/cmm (0.0-0.7) 02/15/23 16:02 Basophils (Manual) 0.0 % 02/15/23 16:02 Absolute Basophils 0.0 10^3/cmm (0.0-0.2) 02/15/23 16:02 Metamyelocytes 1.0 % 02/15/23 16:02 Myelocytes 0.0 % 02/15/23 16:02 Promyelocytes 0.0 % 02/15/23 16:02 Nucleated RBCs 0.0 /100WBC (0-1) 02/15/23 16:02 Nucleated RBCs # 0.0 /100WBC 02/17/23 05:42 Platelet Estimate Normal (Normal) 02/15/23 16:02 Sodium 139 mmol/L (136-145) 02/17/23 05:42 Potassium 3.9 mmol/L (3.5-5.1) 02/17/23 05:42 Chloride 101 mmol/L (98-107) 02/17/23 05:42 Carbon Dioxide 28 mmol/L (22-29) 02/17/23 05:42 Anion Gap 13.9 (5-19) 02/17/23 05:42 BUN 10 mg/dL (8-23) 02/17/23 05:42 Creatinine 0.8 mg/dL (0.7-1.2) 02/17/23 05:42 GFR Calculation Not Reportable 02/17/23 05:42 Glucose 115 mg/dL (65-115) 02/17/23 05:42 Calculated Osmolality 288 mOsm/kg (285-295) 02/17/23 05:42 Lactic Acid 2.8 mmol/L (0.5-2.2) H 02/15/23 16:02 Lactic Acid (Sepsis) 2.1 mmol/L (0.5-2.2) 02/15/23 20:52 Calcium 9.3 mg/dL (8.5-10.5) 02/17/23 05:42 Total Bilirubin 0.8 mg/dL (0.15-1.2) 02/15/23 16:02 AST 18 U/L (0-40) 02/15/23 16:02 ALT 23 U/L (0-41) 02/15/23 16:02 Alkaline Phosphatase 95 U/L (40-130) 02/15/23 16:02 Total Protein 7.9 g/dL (6.6-8.7) 02/15/23 16:02 Albumin 4.7 g/dL (3.5-5.2) 02/15/23 16:02 Globulin 3.2 g/dL (1.3-4.6) 02/15/23 16:02 Lipase 25 U/L (13-60) 02/15/23 16:02 Urine Color Yellow (Yellow) 02/15/23 16:13 Urine Appearance Clear (CLEAR) 02/15/23 16:13 Urine pH 7 (5-7) 02/15/23 16:13 Ur Specific [place] 1.015 (1.005-1.030) 02/15/23 16:13 Urine Protein Trace (Negative) 02/15/23 16:13 Urine Glucose (UA) Norm (Normal) 02/15/23 16:13 Urine Ketones 2+ (Negative) H 02/15/23 16:13 Urine Blood Neg (Negative) 02/15/23 16:13 Urine Nitrate Negative (Negative) 02/15/23 16:13 Urine Bilirubin Neg (Negative) 02/15/23 16:13 Urine Urobilinogen Norm mg/dL (Negative) 02/15/23 16:13 Ur Leukocyte Esterase Negative (Negative) 02/15/23 16:13 Urine RBC 0-4 /hpf (0-2) H 02/15/23 16:13 Urine WBC 0-4 /hpf (0-5) H 02/15/23 16:13 Ur Squamous Epith Cells 0-4 /hpf (0-5) H 02/15/23 16:13 Amorphous Sediment 3+ /hpf 02/15/23 16:13 Urine Bacteria None /hpf (NONE) 02/15/23 16:13 Vitals Last Vital Signs Temp 97.5 F L 02/17/23 11:19 Pulse 64 02/17/23 11:19 Resp 16 02/17/23 11:19 BP 156/91 02/17/23 11:19 Pulse Ox 96 02/17/23 11:19 O2 Del Method Room Air, Nasal Cannula 02/17/23 11:19 O2 Flow Rate 6 02/17/23 09:30 Discharge Plan Discharge Patient Disposition: Home Condition: Stable Prescriptions: New hydrocodone-acetaminophen 10-325 mg tablet 1 tab PO Q6H PRN (Reason: pain) Qty: 20 0RF Rx Instructions: May take half of a tab at a time Colace 100 mg capsule 100 mg PO BID Qty: 14 0RF Continued tamsulosin 0.4 mg capsule 0.4 mg PO QDAY Qty: 30 12RF ketoconazole 2 % shampoo 1 applic topical .2x weekly Qty: 120 6RF Rx Instructions: Lather into scalp 2-3 times weekly. Allow to sit on scalp for 5 minutes before rinsing. fluorouracil [Efudex] 5 % cream 1 applic topical BID 14 Days Qty: 40 0RF Rx Instructions: Apply thin film to the scalp twice daily for two weeks omeprazole 20 mg capsule,delayed release(DR/EC) 20 mg PO DAILY Qty: 90 1RF lisinopril 40 mg tablet See Rx Instructions .ROUTE .COMPLEX Qty: 90 1RF Dose Instruction: take 1/2 tablet BY MOUTH EVERY DAY for 10 days THEN ONE EVERY DAY Rx Instructions: take 1/2 tablet BY MOUTH EVERY DAY for 10 days THEN ONE EVERY DAY metoprolol succinate 50 mg tablet extended release 24 hr 50 mg PO DAILY Held Xarelto 20 mg tablet 20 mg PO QPM Hold Instructions: Resume on 02/20/23. Discharge Orders: Discharge Order (Routine); Ordered 02/17/23 Ordered By: Lambert Mcfarland Referrals: Tim Nguyễn DO [Primary Care Provider] - 4-7 days (We have notified your physician's clinic of the need for a follow-up appointment to be scheduled. If you have not heard from them within the next 2 business days, please call them directly. You may also reach out to our water resource project manager at [phone] and she can assist you.) Lambert Mcfarland DO [Physician] - 2 weeks (We have notified your physician's clinic of the need for a follow-up appointment to be scheduled. If you have not heard from them within the next 2 business days, please call them directly. You may also reach out to our water resource project manager at [phone] and she can assist you.) Discharge Diet: Advance as tolerated Discharge Activity: Limit activity as instructed Patient Instructions: Hydrocodone/Acetaminophen (By mouth) (Vicodin, [place], Lortab), Laxative, Stool Softeners (By mouth), Umbilical Hernia (DC), Opioid Safety Activity Restrictions/Additional Instructions: No lifting, pushing or pulling over 15 pounds for 6 weeks. Do not soak incisions underwater for 2 weeks. Shower daily. Let the glue fall off on its own. Keep bandage on over bellybutton for 5 days and then remove Discharge Attestations Time Spent in Discharge Care*: greater than 30 min Quality Metrics Clinical Quality Measures [ No reported AMI, CVA or VTE this stay] Coding Level of Care Code Acute Code for Chg Fwd Diagnoses Incarcerated umbilical hernia K42.0
== END 2023-02-17 12:20 | disposition home or self-care (01) | DRG 354 ==
LOC: ER 18:58 → MEDSURG 20:09
PROVIDERS: Surgery; Admitting Provider Internal Medicine; Emergency Provider Emergency Medicine; PCP Family Medicine; Visit Provider Internal Medicine
PROC: 0WQF4ZZ Repair Abdominal Wall, Percutaneous Endoscopic Approach (ICD-10-PCS; principal; 2023-02-17 08:00)
DX: K42.0 Umbilical hernia with obstruction, without gangrene (principal); I48.11 Longstanding persistent atrial fibrillation; I10 Essential (primary) hypertension; K21.9 Gastro-esophageal reflux disease without esophagitis; N40.1 Benign prostatic hyperplasia with lower urinary tract symptoms; Z85.828 Personal history of other malignant neoplasm of skin; L82.0 Inflamed seborrheic keratosis
CPT/HCPCS: 36415; 74177; 80048; 80053; 81001; 83605; 83690; 85007; 85025; 88302; 93005; 96365; 99285; C1781; C9113; J1100; J2405; J2543; J2704; J2710; J3010; J3490; J7030; Q9967

== ENCOUNTER 2023-02-18 13:55 | Emergency (ER) | payer MEDICARE, BC, SELFPAY ==
[2023-02-18 14:00] VITALS: BP 160/101; PULSE 128; RESP 17; TEMP 36.6; O2SAT 94; BMI 26.7
--- NOTE | 2023-02-18 14:25 | ED_ITS ---
HPI - Male Genitourinary General: Chief complaint: Urogenital-Male Stated complaint: urinary Time Seen by Provider: 02/18/23 14:18 Source: patient Mode of arrival: ambulatory History of Present Illness: 82-year-old male presents emergency room states he has not been able to void. He had a hernia surgery yesterday since then he has not been able to urinate. He has some suprapubic discomfort fullness bloating. No vomiting. No hematuria prior to surgery no dysuria urgency or frequency has had problems with nocturia in the past and is on tamsulosin alone. He was on Xarelto but is on hold from his surgery yet. Onset (ago): day(s) Duration: constant Severity: moderate Quality: aching Relieving factors: none Exacerbating factors: none Context: recent surgery Associated symptoms: Reports urinary retention; Deny discharge, dysuria, fevers/chills, hematuria, nausea, rash, swelling, urinary incontinence, mass or vomiting Review of Systems Const: Denies: fever(s), chills, body aches, change in appetite, fatigue or malaise ENMT: Denies: throat pain, ear or mastoid pain, nasal discharge or nasal congestion Card: Denies: chest pain, edema, dyspnea on exertion or orthopnea Resp: Denies: dyspnea, productive cough or non-productive cough GI: Denies: nausea or vomiting : Denies: dysuria, urinary incontinence or hematuria Skin/Breast: Denies: rash or pruritus PFSH ED PFSH: Medical History Atrial fibrillation BPH loc w urin obs/LUTS Essential hypertension History of nonmelanoma skin cancer Surgical History History of facial surgery History of skin surgery Social History Smoking and tobacco status: never smoked Alcohol intake: current Alcohol intake frequency: holidays/special occasions only Substance/Drug Use: never Adopted: Yes Caregiver/support person: No Lives independently: No Household members: spouse Housing: House Marital status: Current occupational status: retired Physical Exam Const: GENERAL APPEARANCE: cooperative and comfortable ORIENTATION/CONSCIOUSNESS: Yes awake HENMT: COMMON NORMALS: normocephalic, atraumatic and hearing grossly normal bilaterally HEAD & SCALP: normocephalic and atraumatic Resp: COMMON NORMALS: normal respiratory effort, No retractions, No use of accessory muscles and clear to auscultation bilaterally AUSCULTATION: clear to auscultation bilaterally Cardio: COMMON NORMALS: regular rate, regular rhythm and No murmurs present (Cardio) RATE: regular rate RHYTHM: regular rhythm GI: COMMON NORMALS: Soft to palpation and No hepatosplenomegaly present AUSCULTATION: Yes normoactive bowel sounds PALPATION: Yes Soft to palpation, No Tenderness to palpation present (GI), No Guarding due to palpation present (GI) and Yes No hepatosplenomegaly present Extremity: COMMON NORMALS: normal to inspection, capillary refill normal, no clubbing, cyanosis or edema, no calf tenderness and no pedal edema Skin: COMMON NORMALS: no rashes or lesions noted GENERAL SKIN EXAM: no rashes or lesions noted Course Vital Signs: Vital signs: Vital Signs Temperature 98 F 02/18/23 14:00 Pulse Rate 110 H 02/18/23 16:06 Respiratory Rate 17 02/18/23 14:00 Blood Pressure 164/102 02/18/23 16:06 Pulse Oximetry 95 02/18/23 16:06 Oxygen Delivery Me thod Room Air 02/18/23 16:06 [facility] - Male Medical Decision Making Patient had hernia surgery yesterday. He is on lisinopril. He is a mild acute kidney injury and urinary retention. He had some symptoms of BPH prior to surgery between urinary retention lisinopril he developed a mild kidney injury. Good output after Leo placed he is feeling somewhat better. We will hold lisinopril switch to amlodipine 10 mg daily have him follow-up with his primary care doctor this coming week for repeat BMP and management of catheter return if has further problems prescription given in the emergency room for amlodipine. Medical Records I reviewed the patient's medical records. Lab Data I reviewed the patient's lab results. 02/18/23 14:42 02/18/23 14:42 Laboratory Results WBC 11.40 10^3/uL (3.29-11.43) 02/18/23 14:42 RBC 4.62 10^6/uL (3.85-5.65) 02/18/23 14:42 Hgb 14.20 g/dL (11.27-16.99) 02/18/23 14:42 Hct 42.8 % (37-53) 02/18/23 14:42 MCV 92.6 fl (82-101) 02/18/23 14:42 MCH 30.7 pg (27-33) 02/18/23 14:42 MCHC 33.2 g/dL (30-55) 02/18/23 14:42 RDW 15.3 % (12.1-15.1) H 02/18/23 14:42 Plt Count 215 10^3/cmm (157-399) 02/18/23 14:42 MPV 10.5 fL (7.4-10.4) H 02/18/23 14:42 Neut % (Auto) 70.4 % 02/18/23 14:42 Lymph % (Auto) 16.5 % 02/18/23 14:42 [place] % (Auto) 12.1 % 02/18/23 14:42 Eos % (Auto) 0.4 % 02/18/23 14:42 Baso % (Auto) 0.2 % 02/18/23 14:42 Neut # (Auto) 8.04 10^3/uL (1.8-7.7) H 02/18/23 14:42 Lymph # (Auto) 1.9 10^3/uL (0.8-4.8) 02/18/23 14:42 [place] # (Auto) 1.4 10^3/uL (0.2-0.9) H 02/18/23 14:42 Eos # (Auto) 0.0 10^3/uL (0.0-0.8) 02/18/23 14:42 Baso # (Auto) 0.0 10^3/uL (0.0-0.1) 02/18/23 14:42 Nucleated RBC % (auto) 0 % 02/18/23 14:42 Nucleated RBCs # 0.0 /100WBC 02/18/23 14:42 Sodium 136 mmol/L (136-145) 02/18/23 14:42 Potassium 3.7 mmol/L (3.5-5.1) 02/18/23 14:42 Chloride 99 mmol/L (98-107) 02/18/23 14:42 Carbon Dioxide 24 mmol/L (22-29) 02/18/23 14:42 Anion Gap 16.7 (5-19) 02/18/23 14:42 BUN 25 mg/dL (8-23) H 02/18/23 14:42 Creatinine 2.3 mg/dL (0.7-1.2) H 02/18/23 14:42 GFR Calculation Not Reportable 02/18/23 14:42 Glucose 104 mg/dL (65-115) 02/18/23 14:42 Calculated Osmolality 287 mOsm/kg (285-295) 02/18/23 14:42 Calcium 9.0 mg/dL (8.5-10.5) 02/18/23 14:42 Urine Color Yellow (Yellow) 02/18/23 15:41 Urine Appearance Sl hazy (CLEAR) A 02/18/23 15:41 Urine pH 6 (5-7) 02/18/23 15:41 Ur Specific [place] 1.015 (1.005-1.030) 02/18/23 15:41 Urine Protein Neg (Negative) 02/18/23 15:41 Urine Glucose (UA) Norm (Normal) 02/18/23 15:41 Urine Ketones 1+ (Negative) H 02/18/23 15:41 Urine Blood 3+ (Negative) H 02/18/23 15:41 Urine Nitrate Negative (Negative) 02/18/23 15:41 Urine Bilirubin Neg (Negative) 02/18/23 15:41 Urine Urobilinogen Norm mg/dL (Negative) 02/18/23 15:41 Ur Leukocyte Esterase Negative (Negative) 02/18/23 15:41 Urine RBC 50-80 /hpf (0-2) H 02/18/23 15:41 Urine WBC Rare /hpf (0-5) 02/18/23 15:41 Ur Squamous Epith Cells None /hpf (0-5) 02/18/23 15:41 Amorphous Sediment Not Reportable 02/18/23 15:41 Urine Bacteria Trace /hpf (NONE) 02/18/23 15:41 Discharge Plan Discharge Patient Disposition: Home Clinical Impression: Acute retention of urine Condition: Stable Prescriptions: New amlodipine 10 mg tablet 10 mg PO DAILY Qty: 30 0RF Changed tamsulosin 0.4 mg capsule 0.4 mg PO BID Qty: 30 12RF Discontinued lisinopril 40 mg tablet 40 mg PO DAILY No Action omeprazole 20 mg capsule,delayed release(DR/EC) 20 mg PO DAILY Qty: 90 1RF metoprolol succinate 50 mg tablet extended release 24 hr 50 mg PO DAILY Xarelto 20 mg tablet 20 mg PO QPM Hold Instructions: Resume on 02/20/23. hydrocodone-acetaminophen 10-325 mg tablet 1 tab PO Q6H PRN (Reason: pain) Qty: 20 0RF Rx Instructions: May take half of a tab at a time Discharge Orders: Discharge ED (Routine); Ordered 02/18/23 Ordered By: Raffy Everett Referrals: Tim Nguyễn, [Primary Care Provider] - Discharge Diet: Usual diet Discharge Activity: Increase activity as tolerated Patient Instructions: Urinary Retention in Men (ED), Opioid Safety, Pain Management Activity Restrictions/Additional Instructions: Follow-up with your primary care provider or your urologist within the next 5 to 7 days. Increase your tamsulosin to 2 tablets at bedtime stop the lisinopril and instead take amlodipine 10 mg daily. You did have evidence on your labs of mild kidney injury recommend repeat blood work within the next 5 days with your primary care provider. Coding Level of Care Code ED Artificial Candy Maker for Charly Rao
[2023-02-18 14:36] VITALS: BP 155/92; PULSE 94; O2SAT 96
[2023-02-18 15:10] LABS: Basophils % 0.2 %; Eosinophils % 0.4 %; Hematocrit 42.8 % (37-53); Lymphocytes # 1.9 10^3/uL (0.8-4.8); Lymphocytes % 16.5 %; Mean Corpuscular HGB Conc 33.2 g/dL (30-55); Mean Corpuscular Hemoglobin 30.7 pg (27-33); Mean Corpuscular Volume 92.6 fl (82-101); Mean Platelet Volume 10.5 fL (7.4-10.4); Monocytes # 1.4 10^3/uL (0.2-0.9); Monocytes % 12.1 %; Neutrophils # 8.04 10^3/uL (1.8-7.7); Neutrophils % 70.4 %; Nucleated Red Blood Cells % 0 %; Platelet Count 215 10^3/cmm (157-399); Red Blood Count 4.62 10^6/uL (3.85-5.65); Red Cell Distribution Width 15.3 % (12.1-15.1)
[2023-02-18 15:29] LABS: Anion Gap 16.7 (5-19); Blood Urea Nitrogen 25 mg/dL (8-23); Carbon Dioxide 24 mmol/L (22-29); Chloride 99 mmol/L (98-107); Glucose 104 mg/dL (65-115); Osmolality Calculated 287 mOsm/kg (285-295); Potassium 3.7 mmol/L (3.5-5.1); Sodium 136 mmol/L (136-145)
[2023-02-18 16:06] VITALS: BP 164/102; PULSE 110; O2SAT 95
[2023-02-18 16:15] LABS: Protein Urine Neg (Negative); Specific Gravity, Urine 1.015 (1.005-1.030); Urine Appearance SL Hazy (CLEAR); Urine Color Yellow (Yellow); pH Urine 6 (5-7)
[2023-02-18 16:16] LABS: Add Urine Microscopic? YES; Bilirubin Urine Neg (Negative); Blood Urine 3+ (Negative); Glucose Urine UA Norm (Normal); Ketones Urine 1+ (Negative); Leukocyte Esterase Urine Negative (Negative); Nitrate Urine Negative (Negative); Urobilinogen Urine Norm (Negative)
[2023-02-18 16:18] LABS: Bacteria Urine TRACE /hpf; RBC Urine 50-80 /hpf (0-2); WBC Urine RARE /hpf (0-5)
[2023-02-18 16:19] LABS: Add Urine Culture? Yes
[2023-02-18 17:35] VITALS: BP 164/91; PULSE 116; O2SAT 92
[2023-02-18] MEDS: lisinopril 10 mg Tablet PO (17:35)
[2023-02-18] MEDS: sodium chloride 0.9% 1,000 ML 999 ML IV (17:35)
--- NOTE | 2023-02-21 09:25 | DCPLANNER ---
bus and sys integration senior manager was asked to speak with patients daughter about getting a follow up appointment for patient with primary care physician. bus and sys integration senior manager spoke with patients daughter, the patients primary care physician is out of the office at this time, and no one else in the office is available to see patient. bus and sys integration senior manager offered to refer patient to a urologist. Patients daughter wanted patients information sent to [facility] in [facility]. bus and sys integration senior manager faxed patients information, it will be reviewed, clinic will call patient with appointment information.
== END 2023-02-18 17:37 | disposition home or self-care (01) ==
PROVIDERS: Emergency Provider Family Medicine; PCP Family Medicine
DX: R33.9 Retention of urine, unspecified (principal); I10 Essential (primary) hypertension
CPT/HCPCS: 36415; 51702; 51798; 80048; 81001; 85025; 87086; 99284; J7030

== ENCOUNTER → 2023-02-22 14:36 | Outpatient (BNVA) | payer MEDICARE, BC, SELFPAY | PROVIDERS: PCP Family Medicine; Visit Provider Dermatology | DX: L57.8 Other skin changes due to chronic exposure to nonionizing radiation (principal); L82.1 Other seborrheic keratosis; D48.5 Neoplasm of uncertain behavior of skin; L57.0 Actinic keratosis; L82.0 Inflamed seborrheic keratosis; Z85.828 Personal history of other malignant neoplasm of skin | CPT/HCPCS: 11102; 17000; 17003; 17110; 99214 ==

== ENCOUNTER → 2023-03-06 11:11 | Outpatient (BNVA) | payer MEDICARE, BC, SELFPAY | PROVIDERS: PCP Family Medicine; Visit Provider Surgery | DX: Z98.890 Other specified postprocedural states (principal); Z87.19 Personal history of other diseases of the digestive system | CPT/HCPCS: 99024 ==

== ENCOUNTER → 2023-03-07 08:15 | Outpatient (BNVA) | payer MEDICARE, BC, SELFPAY | PROVIDERS: PCP Family Medicine; Visit Provider Dermatology | DX: D03.59 Melanoma in situ of other part of trunk (principal) | CPT/HCPCS: 11606 ==

== ENCOUNTER → 2023-03-13 11:09 | Outpatient (BNVA) | payer MEDICARE, BC, SELFPAY | PROVIDERS: PCP Family Medicine; Visit Provider Surgery | DX: I89.0 Lymphedema, not elsewhere classified (principal) | CPT/HCPCS: 29580; 99214 ==

== ENCOUNTER → 2023-03-20 10:21 | Outpatient (BNVA) | payer MEDICARE, BC, SELFPAY | PROVIDERS: PCP Family Medicine; Visit Provider Surgery | DX: I89.0 Lymphedema, not elsewhere classified (principal) | CPT/HCPCS: 29580; 99214 ==

== ENCOUNTER → 2023-03-27 08:06 | Outpatient (BNVA) | payer MEDICARE, BC, SELFPAY | PROVIDERS: PCP Family Medicine; Visit Provider Dermatology | DX: D03.9 Melanoma in situ, unspecified (principal); Z48.02 Encounter for removal of sutures | CPT/HCPCS: 99213 ==

== ENCOUNTER → 2023-03-28 15:15 | Outpatient (BNVA) | payer MEDICARE, BC, SELFPAY | PROVIDERS: PCP Family Medicine; Visit Provider Surgery | DX: I89.0 Lymphedema, not elsewhere classified (principal) | CPT/HCPCS: 29580; 99213 ==

== ENCOUNTER → 2023-04-06 10:24 | Outpatient (BNVA) | payer MEDICARE, BC, SELFPAY | PROVIDERS: PCP Family Medicine; Visit Provider Podiatrist Foot & Ankle Surgery | DX: I89.0 Lymphedema, not elsewhere classified (principal); I83.019 Varicose veins of right lower extremity with ulcer of unspecified site; I83.029 Varicose veins of left lower extremity with ulcer of unspecified site; I87.2 Venous insufficiency (chronic) (peripheral); R60.9 Edema, unspecified; L97.912 Non-pressure chronic ulcer of unspecified part of right lower leg with fat layer exposed; L97.922 Non-pressure chronic ulcer of unspecified part of left lower leg with fat layer exposed | CPT/HCPCS: 99203 ==

== ENCOUNTER → 2023-04-11 13:52 | Outpatient (BNVA) | payer MEDICARE, BC, SELFPAY | PROVIDERS: PCP Family Medicine; Visit Provider Nurse Practitioner Family | DX: I96 Gangrene, not elsewhere classified (principal); I87.2 Venous insufficiency (chronic) (peripheral); L97.822 Non-pressure chronic ulcer of other part of left lower leg with fat layer exposed; L97.812 Non-pressure chronic ulcer of other part of right lower leg with fat layer exposed | CPT/HCPCS: 11042; 11045; 99213; A6210 ==

== ENCOUNTER → 2023-04-13 10:54 | Outpatient (BNVA) | payer MEDICARE, BC, SELFPAY | PROVIDERS: PCP Family Medicine; Visit Provider Nurse Practitioner Family | DX: R39.9 Unspecified symptoms and signs involving the genitourinary system (principal) | CPT/HCPCS: 81000 ==

== ENCOUNTER → 2023-04-17 10:26 | Outpatient (BNVA) | payer MEDICARE, BC, SELFPAY | PROVIDERS: PCP Family Medicine; Visit Provider Family Medicine | DX: I48.11 Longstanding persistent atrial fibrillation (principal); I89.0 Lymphedema, not elsewhere classified; R63.4 Abnormal weight loss; R53.1 Weakness; N18.9 Chronic kidney disease, unspecified | CPT/HCPCS: 80053; 80503; 84443; 85025; G0103 ==

== ENCOUNTER → 2023-04-18 13:44 | Outpatient (BNVA) | payer MEDICARE, BC, SELFPAY | PROVIDERS: PCP Family Medicine; Visit Provider Thoracic Surgery (Cardiothoracic Vascular Surgery) | DX: I96 Gangrene, not elsewhere classified (principal); I87.2 Venous insufficiency (chronic) (peripheral); L97.821 Non-pressure chronic ulcer of other part of left lower leg limited to breakdown of skin; L97.811 Non-pressure chronic ulcer of other part of right lower leg limited to breakdown of skin | CPT/HCPCS: 97597; A6212 ==

== ENCOUNTER → 2023-06-08 09:12 | Outpatient (BNVA) | payer MEDICARE, BC, SELFPAY | PROVIDERS: PCP Family Medicine; Visit Provider Podiatrist Foot & Ankle Surgery | DX: B35.1 Tinea unguium (principal); I73.9 Peripheral vascular disease, unspecified; N18.9 Chronic kidney disease, unspecified | CPT/HCPCS: 11721 ==

== ENCOUNTER → 2023-07-04 13:58 | Outpatient (BNVA) | payer MEDICARE, BC, SELFPAY | PROVIDERS: PCP Family Medicine; Visit Provider Dermatology | DX: D48.5 Neoplasm of uncertain behavior of skin (principal); L57.8 Other skin changes due to chronic exposure to nonionizing radiation; L57.0 Actinic keratosis; L21.8 Other seborrheic dermatitis; L82.1 Other seborrheic keratosis; Z85.828 Personal history of other malignant neoplasm of skin; Z86.006 Personal history of melanoma in-situ | CPT/HCPCS: 11102; 17000; 99214 ==

== ENCOUNTER → 2023-07-31 09:17 | Outpatient (BNVA) | payer MEDICARE, BC, SELFPAY | PROVIDERS: PCP Family Medicine; Visit Provider Dermatology | DX: C44.529 Squamous cell carcinoma of skin of other part of trunk (principal); L57.0 Actinic keratosis; Z85.820 Personal history of malignant melanoma of skin; L82.1 Other seborrheic keratosis; Z85.828 Personal history of other malignant neoplasm of skin | CPT/HCPCS: 17000; 17262; 99213 ==

== ENCOUNTER → 2023-09-03 09:27 | Outpatient (BNVA) | payer MEDICARE, BC, SELFPAY | PROVIDERS: PCP Family Medicine; Visit Provider Podiatrist Foot & Ankle Surgery | DX: B35.1 Tinea unguium (principal); I73.9 Peripheral vascular disease, unspecified; N18.9 Chronic kidney disease, unspecified | CPT/HCPCS: 11721 ==

== ENCOUNTER 2023-09-28 09:08 | Outpatient (CLI) | payer MEDICARE, BC, SELFPAY ==
--- NOTE | 2023-09-28 09:14 | CTR_ITS ---
PROCEDURE INFORMATION: Exam: CT Abdomen And Pelvis Without And With Contrast Exam date and time: 09/28/2023 9:40 AM Age: 83 years old Clinical indication: Other: Hematuria; Prior surgery; Surgery date: 6+ months; Surgery type: Hernia TECHNIQUE: Imaging protocol: Computed tomography of the abdomen and pelvis without and with contrast. 3D rendering (Not supervised by radiologist): MIP and/or 3D reconstructed images were created by the technologist. Radiation optimization: All CT scans at this facility use at least one of these dose optimization techniques: automated exposure control; mA and/or kV adjustment per patient size (includes targeted exams where dose is matched to clinical indication); or iterative reconstruction. Contrast material: OMNI 350; Contrast volume: 95 ml; Contrast route: INTRAVENOUS (IV); COMPARISON: CT abdomen pelvis w con* [id number] 02/15/2023 5:14 PM RADIATION DOSE METRICS: Total DLP (mGy-cm): 2767.33 FINDINGS: Lungs: Lung bases are clear. No pleural effusion. Liver: Normal. No mass. Gallbladder and bile ducts: Normal. No calcified stones. No ductal dilation. Pancreas: Normal. No ductal dilation. Spleen: Normal. No splenomegaly. Adrenal glands: Normal. No mass. Kidneys and ureters: A 6 mm stone is noted in the right kidney. Three small cysts involve the left kidney. There is a 6 mm stone located in the proximal aspect of the left ureter causing mild hydronephrosis. Stomach and bowel: There are multiple scattered diverticula throughout much of the colon. Appendix: No evidence of appendicitis. Intraperitoneal space: Unremarkable. No free air. No significant fluid collection. Vasculature: Unremarkable. No abdominal aortic aneurysm. Lymph nodes: Unremarkable. No enlarged lymph nodes. Urinary bladder: See Reproductive finding. Reproductive: The prostate gland is severely enlarged and bulges into the lumen of the bladder. There is chronic bladder wall trabeculation and thickening. Bones/joints: Unremarkable. No acute fracture. Soft tissues: Unremarkable. CT/CT abdomen pelvis wo/w [id number] IMPRESSION: 1. 6 mm upper left ureteral stone with hydronephrosis 2. Severe prostate enlargement 3. A benign renal cyst or cysts have been detected. No further follow-up imaging is required. 4. Colonic diverticulosis COMMENTS: Consistent with the [place] [employer]'s Incidental Findings Committee white paper (J Am Cuco Radiol 2018): Any incidental renal lesion less than 1 cm or classified as too small to characterize, or any incidental cystic renal lesion characterized as simple-appearing, is likely benign. No follow-up imaging is recommended for these lesions per consensus recommendations based on imaging criteria.
[2023-09-28] MEDS: iohexol 350 mg/mL 500 mL Btl (per mL) IV (09:45)
[2023-09-28 10:36] LABS: Blood Urea Nitrogen 18 mg/dL (8-23)
== END 2023-09-28 09:09 | disposition home or self-care (01) ==
LOC: RAD 09:09
PROVIDERS: PCP Family Medicine; Visit Provider Urology
DX: N13.2 Hydronephrosis with renal and ureteral calculous obstruction (principal); N28.1 Cyst of kidney, acquired; N40.0 Benign prostatic hyperplasia without lower urinary tract symptoms; R31.9 Hematuria, unspecified
CPT/HCPCS: 74178; 82565; 84520; Q9967

== ENCOUNTER → 2023-11-05 09:49 | Outpatient (BNVA) | payer MEDICARE, BC, SELFPAY | PROVIDERS: PCP Family Medicine; Visit Provider Podiatrist Foot & Ankle Surgery | DX: B35.1 Tinea unguium (principal); I73.9 Peripheral vascular disease, unspecified; N18.9 Chronic kidney disease, unspecified | CPT/HCPCS: 11721 ==

== ENCOUNTER → 2023-11-20 13:36 | Outpatient (BNVA) | payer MEDICARE, BC, SELFPAY | PROVIDERS: PCP Family Medicine; Visit Provider Dermatology | DX: L57.8 Other skin changes due to chronic exposure to nonionizing radiation (principal); L82.1 Other seborrheic keratosis; L57.0 Actinic keratosis; Z85.820 Personal history of malignant melanoma of skin; Z85.828 Personal history of other malignant neoplasm of skin | CPT/HCPCS: 17000; 99214 ==

== ENCOUNTER → 2024-01-08 09:47 | Outpatient (BNVA) | payer MEDICARE, BC, SELFPAY | PROVIDERS: PCP Family Medicine; Visit Provider Podiatrist Foot & Ankle Surgery | DX: B35.1 Tinea unguium (principal); I73.9 Peripheral vascular disease, unspecified; N18.9 Chronic kidney disease, unspecified | CPT/HCPCS: 11721 ==

== ENCOUNTER → 2024-01-14 09:57 | Outpatient (BNVA) | payer MEDICARE, BC, SELFPAY | PROVIDERS: PCP Family Medicine; Visit Provider Internal Medicine Cardiovascular Disease | DX: R07.9 Chest pain, unspecified (principal); I48.11 Longstanding persistent atrial fibrillation; I10 Essential (primary) hypertension; I87.2 Venous insufficiency (chronic) (peripheral); R94.31 Abnormal electrocardiogram [ECG] [EKG] | CPT/HCPCS: 93005; 99204 ==

== ENCOUNTER 2024-02-13 07:48 | Outpatient (CLI) | payer MEDICARE, BC, SELFPAY ==
[2024-02-13 08:09] VITALS: BMI 26.6
--- NOTE | 2024-02-13 08:09 | ECG_ITS ---
[facility] Test Date: 2024-02-13 Pat Name: Diallo Knox Department: Room: Gender: Male Application Development Consultant: : 1940 Requested By: Camila Treviño Order Number: [id number] Douglas ESPINOSA: Interpretive Statements Lung unchanged pre/post procedure; Intraprocedure shortess of breath; Symptoms resoled by discharge [email or web address]
--- NOTE | 2024-02-13 08:10 | NMCV_ITS ---
NM roger perf SPECT r/s* [id number] Diallo Knox Age: 83 Gender: M : 1940 Exam Date: 02/13/2024 08:10 Ordering Phys: Camila Treviño MD ([email or web address]) Technologist: DAYO Grande Exam Location: [facility] Indications: SOB STRESS TEST [facility] IMAGE PROTOCOL Rest/Stress 1 Lexiscan Day Radiopharmaceutical Dose (mCi) Administration Site Administered by Rest: Tc-99m 10.4 IV DAYO Grande Sestamibi Stress:Tc-99m 32.6 IV DAYO Grande Sestamibi Rest: 13-Feb-2024 60 Discovery 630 Stress: 13-Feb-2024 30 Discovery 630 0.4mg Lexiscan. Images obtained in supine and prone position. SPECT RESULTS Technical Quality: Good Raw Data Analysis: Normal Image Corrections: No attenuation or motion correction applied Summed Stress Score: 1 Summed Rest Score: 2 Summed Difference Score: 0 PERFUSION FINDINGS A small area of slightly decreased tracer uptake was noted on the AP lateral region with no significant reversibility FUNCTIONAL RESULTS (calculated via Gated SPECT) Stress Image LV EF (%): 66 Stress EDV (mL):89 TID: 1.13 Stress ESV (mL):30 FUNCTIONAL FINDINGS: Segmental wall motion analysis revealing no gross wall motion abnormalities IMPRESSIONS 1. Myocardial perfusion imaging revealing small area of slightly decreased persistent tracer uptake in the apical lateral region suggesting myocardial scarring versus attenuation artifact 2. Normal LV ejection fraction of 66%. 3. LV wall motion analysis revealing no gross wall motion abnormalities. 4. Normal LV volume Low probability for coronary ischemia, based on the above findings. No similar previous studies are available for comparison Dr Camila Treviño MD [facility] (Electronically Signed) Final Date: 15 February 2024 11:01 S
[2024-02-13] MEDS: regadenoson 0.4 Mg/5 ml Syringe IVP (09:29)
[2024-02-13 09:44] VITALS: BP 118/77; PULSE 85
== END 2024-02-13 07:49 | disposition home or self-care (01) ==
PROVIDERS: PCP Family Medicine; Visit Provider Internal Medicine Cardiovascular Disease
DX: I48.11 Longstanding persistent atrial fibrillation (principal); I10 Essential (primary) hypertension; I73.9 Peripheral vascular disease, unspecified; R94.39 Abnormal result of other cardiovascular function study
CPT/HCPCS: 36415; 78452; 93017; 96374; A9500; J2785

== ENCOUNTER 2024-03-03 11:51 | Outpatient (CLI) | payer MEDICARE, BC, SELFPAY ==
--- NOTE | 2024-03-03 12:00 | USCV_ITS ---
Diallo Knox Age: 84 Gender: M : 1940 Exam Date: 03/03/2024 12:18 Ordering Phys: Camila Treviño MD ([email or web address]) Technologist: CT Exam Location: [facility] – [place] Indication: BP: 134 / 80 HR: 75 Rhythm: Sinus Technical Quality: Adequate MEASUREMENTS (Male / Female) Normal Values 2D ECHO LVOT Diameter 2.1 cm LV Ejection Fraction MOD 4C 53.4 % LV Ejection Fraction MOD 2C 64.4 % LV Ejection Fraction 2C AL 62.3 % LA Diameter 4.7 cm RA Systolic Volume 4C AL 95.7 ml RA Systolic Volume 4C MOD 91.3 ml LA Sys Volume AL 76.7 cm cubed LA Sys Volume Index AL 36.7 cm cubed/m squared Aorta at Sinotubular Diameter 2.6 cm M-MODE LA Ao Ratio MM 1.6 AV Cusp Separation MM 1.0 cm DOPPLER AV Peak Velocity 190.0 cm/s LVOT Peak Velocity 76.0 cm/s AV Area Cont Eq vti 1.8 cm squared AV Area Cont Eq pk 1.3 cm squared MV Peak Velocity 86.0 cm/s MV Area PHT 3.5 cm squared TR Peak Velocity 195.0 cm/s TR Peak Gradient 15.2 mmHg TV Peak E Velocity 71.0 cm/s Right Atrial Pressure 3.0 mmHg Pulmonary Artery Systolic Pressu 18.2 mmHg PV Peak Velocity 72.5 cm/s FINDINGS Left Ventricle Normal left ventricular size and systolic function, EF 64%. No regional wall motion abnormalities. Mild left ventricular hypertrophy. Right Ventricle Normal right ventricular size and systolic function. Right Atrium Moderately increased right atrial size. Left Atrium Moderately increased left atrial size. Mitral Valve Trace mitral valve regurgitation. Aortic Valve Mild aortic valve regurgitation. Aortic valve sclerosis. Peak velocity at the aortic valve 1.9 m/s Tricuspid Valve Trace of tricuspid valve regurgitation. Estimated pulmonary artery peak systolic pressure within normal limit Pulmonic Valve Mild pulmonary valve regurgitation. Pericardium No pericardial effusion. Aorta Normal aortic annulus size. IVC Inferior vena cava not visualized. CONCLUSIONS Normal left ventricular size and systolic function, EF 64%. No regional wall motion abnormalities. Mild left ventricular hypertrophy. Moderate biatrial enlargement Trace of mitral and tricuspid regurgitation Mild aortic valve regurgitation. Aortic valve sclerosis. Peak velocity at the aortic valve 1.9 m/s. Estimated pulmonary artery peak systolic pressure within normal limits There is no pericardial effusion. There are no intracardiac masses. No similar previous studies are available for comparison Dr Camila Treviño MD FAC (Electronically Signed) Final Date: 04 March 2024 08:41 S
== END 2024-03-03 11:52 | disposition home or self-care (01) ==
LOC: RAD 11:52
PROVIDERS: PCP Family Medicine; Visit Provider Internal Medicine Cardiovascular Disease
DX: I51.7 Cardiomegaly (principal); R06.09 Other forms of dyspnea
CPT/HCPCS: 93306

== ENCOUNTER → 2024-03-18 10:58 | Outpatient (BNVA) | payer MEDICARE, BC, SELFPAY | PROVIDERS: PCP Family Medicine; Visit Provider Podiatrist Foot & Ankle Surgery | DX: B35.1 Tinea unguium (principal); I73.9 Peripheral vascular disease, unspecified; N18.9 Chronic kidney disease, unspecified | CPT/HCPCS: 11721 ==

== ENCOUNTER → 2024-04-14 14:05 | Outpatient (BNVA) | payer MEDICARE, BC, SELFPAY | PROVIDERS: PCP Family Medicine; Visit Provider Internal Medicine Cardiovascular Disease | DX: I48.11 Longstanding persistent atrial fibrillation (principal); Z79.01 Long term (current) use of anticoagulants; I87.2 Venous insufficiency (chronic) (peripheral); N20.0 Calculus of kidney; I12.9 Hypertensive chronic kidney disease with stage 1 through stage 4 chronic kidney disease, or unspecified chronic kidney disease; N18.32 Chronic kidney disease, stage 3b | CPT/HCPCS: 99214 ==

== ENCOUNTER → 2024-05-22 13:06 | Outpatient (BNVA) | payer MEDICARE, BC, SELFPAY | PROVIDERS: PCP Family Medicine; Visit Provider Dermatology | DX: L81.4 Other melanin hyperpigmentation (principal); L57.8 Other skin changes due to chronic exposure to nonionizing radiation; L82.1 Other seborrheic keratosis; L21.8 Other seborrheic dermatitis; Z85.820 Personal history of malignant melanoma of skin; Z08 Encounter for follow-up examination after completed treatment for malignant neoplasm; Z85.828 Personal history of other malignant neoplasm of skin; L57.0 Actinic keratosis; D48.5 Neoplasm of uncertain behavior of skin | CPT/HCPCS: 11102; 17004; 69100; 99214 ==

== ENCOUNTER 2024-06-16 12:45 | Outpatient (CLI) | payer MEDICARE, BC, SELFPAY ==
--- NOTE | 2024-06-16 12:53 | US_ITS ---
WS: [id number] RENAL ULTRASOUND HISTORY: CALCULUS OF KIDNEY URETER COMPARISON: None available. TECHNIQUE: 2-D and color Doppler imaging of the kidney submitted. Right kidney: 9.6 cm x 4.6 cm x 5.6 cm. Cortex: 1.1 cm Normal echogenicity with no hydronephrosis or mass. Left kidney: 10.2 cm x 4.4 cm x 6.4 cm. Cortex: 1.3 cm Normal echogenicity with no hydronephrosis or mass. Cortical cyst mid kidney 1.6 x 1.8 x 1.6 cm. Norm al vascularity. Aorta: Normal. Urinary Bladder: Normal distention. Markedly enlarged prostate gland encroaching into the bladder. Prostate gland is heterogeneous. Prost ate measures at least 7.0 x 4.6 x 4.2 cm. US/US renal BI* [id number] IMPRESSION: 1. Normal size kidneys with no hydronephrosis. 2. Simple cyst mid LEFT kidney maximum diameter 1.8 cm. 3. Markedly enlarged heterogeneous prostate gland.
--- NOTE | 2024-06-16 12:53 | XR_ITS ---
WS: [id number] KUB, AP view, 06/16/2024 Clinical Data: CALCULUS OF KIDNEY URETER Comparison: CT abdomen pelvis, 09/28/2023 Findings: There are calcifications overlying the right kidney which may be intrarenal. There is a 1.6 cm linear calcification to the left of the L3 vertebral body which could be in the proximal left ureter. There is a large amount of fecal material throughout the colon. No obstruction is seen. 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 The pelvis and hips are not remarkable. XR/XR KUB [id number] Impression: 1. Probable right intrarenal calcifications. 2. Questionable proximal left ureteral calculus.
== END 2024-06-16 12:46 | disposition home or self-care (01) ==
LOC: RAD 12:51
PROVIDERS: PCP Family Medicine; Visit Provider Urology
DX: N20.2 Calculus of kidney with calculus of ureter (principal); N28.1 Cyst of kidney, acquired; N40.0 Benign prostatic hyperplasia without lower urinary tract symptoms; N28.89 Other specified disorders of kidney and ureter; M47.896 Other spondylosis, lumbar region
CPT/HCPCS: 74018; 76770

== ENCOUNTER → 2024-07-02 09:59 | Outpatient (BNVA) | payer MEDICARE, BC, SELFPAY | PROVIDERS: PCP Family Medicine; Visit Provider Podiatrist Foot & Ankle Surgery | DX: B35.1 Tinea unguium (principal); I73.9 Peripheral vascular disease, unspecified; N18.32 Chronic kidney disease, stage 3b | CPT/HCPCS: 11055; 11721 ==

== ENCOUNTER → 2024-07-09 14:13 | Outpatient (BNVA) | payer MEDICARE, BC, SELFPAY | PROVIDERS: PCP Family Medicine; Visit Provider Dermatology | DX: D03.9 Melanoma in situ, unspecified (principal); L57.8 Other skin changes due to chronic exposure to nonionizing radiation; Z85.820 Personal history of malignant melanoma of skin; Z08 Encounter for follow-up examination after completed treatment for malignant neoplasm; Z85.828 Personal history of other malignant neoplasm of skin; L57.0 Actinic keratosis | CPT/HCPCS: 17000; 99214 ==

== ENCOUNTER → 2024-08-20 08:17 | Outpatient (BNVA) | payer MEDICARE, BC, SELFPAY | PROVIDERS: PCP Family Medicine; Visit Provider Dermatology | DX: D03.9 Melanoma in situ, unspecified (principal); L82.1 Other seborrheic keratosis; L57.8 Other skin changes due to chronic exposure to nonionizing radiation; Z85.820 Personal history of malignant melanoma of skin; Z08 Encounter for follow-up examination after completed treatment for malignant neoplasm | CPT/HCPCS: 17000; 99214 ==

== ENCOUNTER → 2024-09-03 10:10 | Outpatient (BNVA) | payer MEDICARE, BC, SELFPAY | PROVIDERS: PCP Family Medicine; Visit Provider Podiatrist Foot & Ankle Surgery | DX: I73.9 Peripheral vascular disease, unspecified (principal); B35.1 Tinea unguium; N18.32 Chronic kidney disease, stage 3b | CPT/HCPCS: 11721 ==

== ENCOUNTER → 2024-12-03 10:00 | Outpatient (BNVA) | payer MEDICARE, BC, SELFPAY | PROVIDERS: PCP Family Medicine; Visit Provider Podiatrist Foot & Ankle Surgery | DX: I73.9 Peripheral vascular disease, unspecified (principal); B35.1 Tinea unguium; N18.32 Chronic kidney disease, stage 3b | CPT/HCPCS: 11721 ==

== ENCOUNTER 2025-01-03 11:05 | Outpatient (CLI) | payer MEDICARE, BC, SELFPAY ==
[2025-01-03 11:41] LABS: Hematocrit 39.9 % (37-53); Hemoglobin 13.50 g/dL (11.27-16.99); Mean Corpuscular HGB Conc 33.8 g/dL (30-55); Mean Corpuscular Hemoglobin 30.2 pg (27-33); Mean Corpuscular Volume 89.3 fl (82-101); Nucleated Red Blood Cells % 0 %; Platelet Count 230 10^3/cmm (157-399); Red Blood Count 4.47 10^6/uL (3.85-5.65); White Blood Count 6.45 10^3/uL (3.29-11.43)
[2025-01-03 12:06] LABS: Alanine Aminotransferase 9 U/L (0-41); Albumin Level 3.8 g/dL (3.5-5.2); Alkaline Phosphatase 64 U/L (40-130); Anion Gap 15.9 (5-19); Aspartate Amino Transferase 11 U/L (0-40); Blood Urea Nitrogen 18 mg/dL (8-23); Calcium 9.2 mg/dL (8.5-10.5); Carbon Dioxide 26 mmol/L (22-29); Chloride 100 mmol/L (98-107); Cholesterol 169 mg/dL (0-200); Globulin 2.0 g/dL (1.3-4.6); Glucose 80 mg/dL (65-115); HDL Cholesterol 54 mg/dL (60-100); Osmolality Calculated 287 mOsm/kg (285-295); Potassium 3.9 mmol/L (3.5-5.1); Sodium 138 mmol/L (136-145); Total Protein 5.8 g/dL (6.6-8.7); Triglycerides 75 mg/dL (0-150)
== END 2025-01-03 11:06 | disposition home or self-care (01) ==
PROVIDERS: PCP Family Medicine; Visit Provider Family Medicine
DX: E11.9 Type 2 diabetes mellitus without complications (principal); I10 Essential (primary) hypertension
CPT/HCPCS: 80053; 80061; 85025

== ENCOUNTER 2025-01-14 08:56 | Outpatient (CLI) | payer MEDICARE, BC, SELFPAY ==
--- NOTE | 2025-01-14 09:06 | XR_ITS ---
WS: [email or web address] KUB, AP view, 01/14/2025 Clinical Data: NEPHROLITHIASIS Comparison: None. Findings: No abnormal intraabdominal masses are seen. There is no dilatated small bowel or evidence of obstruction. There is a large amount of fecal material in the colon which obscures detail over both kidneys. There is degenerative change of the lumbar vertebral bodies. XR/XR KUB [id number] Impression: Large amount of fecal material in the colon.
== END 2025-01-14 08:57 | disposition home or self-care (01) ==
PROVIDERS: Visit Provider Nurse Practitioner Family
DX: K59.00 Constipation, unspecified (principal); N20.0 Calculus of kidney
CPT/HCPCS: 74018

== ENCOUNTER → 2025-02-11 09:57 | Outpatient (BNVA) | payer MEDICARE, BC, SELFPAY | PROVIDERS: Visit Provider Podiatrist Foot & Ankle Surgery | DX: I73.9 Peripheral vascular disease, unspecified (principal); B35.1 Tinea unguium; L84 Corns and callosities; N18.32 Chronic kidney disease, stage 3b | CPT/HCPCS: 11056; 11721 ==

== ENCOUNTER → 2025-04-22 10:15 | Outpatient (BNVA) | payer MEDICARE, BC, SELFPAY | PROVIDERS: Visit Provider Podiatrist Foot & Ankle Surgery | DX: E11.8 Type 2 diabetes mellitus with unspecified complications (principal); B35.1 Tinea unguium; L84 Corns and callosities; I73.9 Peripheral vascular disease, unspecified; N18.32 Chronic kidney disease, stage 3b | CPT/HCPCS: 11056; 11721 ==